=== PATIENT | female | born 1935 | race Caucasian/White ===

== ENCOUNTER 2016-10-30 07:33 | Outpatient (CLI) | payer MEDICARE, OTHER | END 2016-10-30 07:34 | disposition home or self-care (01) | DX: I10 Essential (primary) hypertension (principal); M35.3 Polymyalgia rheumatica ==

== ENCOUNTER 2017-02-23 09:48 | Outpatient (CLI) | payer MEDICARE, OTHER ==
--- NOTE | 2017-02-23 13:42 | DEXA Report ---
DEXA SCAN: 02/23/2017 CLINICAL INDICATION: Postmenopausal. TECHNIQUE: Dual energy x-ray absorptiometry (DXA) was performed on a [email or web address] system. Regions measured are the AP spine, femoral neck, and, if needed, forearm. COMPARISON: None. Using the data from the right hip and left forearm. In accordance with the International Society for Clinical Densitometry (ISCD) guidelines, data from previous exams may be reanalyzed using current recommendations and techniques. This is done to allow a more accurate basis for comparison with the current study. The data for the hip is as follows: REGION BMD (g/cm/cm) T-SCORE Z-SCORE Neck 0.940 -0.7 1.2 TOTAL 0.960 -0.4 1.4 NOTE: The femoral neck or total proximal femur, whichever is lowest, is used for classification. The data for the forearm is as follows: REGION BMD (g/cm/cm) T-SCORE Z-SCORE 1/3 0.841 -0.4 2.6 NOTE: The 33% radius of the nondominant forearm is used for classification. IMPRESSION: 1. THE WHO CLASSIFICATION BASED ON THE INTERNATIONAL REFERENCE STANDARD IS NORMAL. THE FRACTURE RISK IS NOT INCREASED. 2. LEFT FOREARM AND RIGHT HIP EVALUATION PERFORMED SECONDARY TO SPINAL FUSION AND LEFT HIP SURGERY. RECOMMENDATION: Patients with diagnosis of osteoporosis or osteopenia should have regular bone mineral density assessment. For those eligible for Medicare, routine testing is allowed once every 2 years. Testing frequency can be increased for patients who have rapidly progressing disease or for those who are receiving medical therapy to restore bone mass. COMMENT: World Health Organization (WHO) definitions for osteoporosis and osteopenia: NORMAL BMD: T-score at -1.0 or higher, fracture risk is low. OSTEOPENIA BMD: T-score between -1.0 and -2.5, fracture risk is increased. OSTEOPOROSIS BMD: T-score at -2.5 or lower, fracture risk high. National Osteoporosis Foundation recommends: 1. Obtain adequate dietary calcium (at least 1200 mg per day) and vitamin D (400 -800 international units per day). 2. Participate, as appropriate, in regular weightbearing and muscle- strengthening exercise. 3. Avoid tobacco use and reduce alcohol and caffeine intake. 4. For more detailed information see the website at www.NOF.org. MTDD
== END 2017-02-23 09:49 | disposition home or self-care (01) ==
LOC: DI 09:48
PROVIDERS: ATTEND Family Medicine
DX: Z78.0 Asymptomatic menopausal state (principal)
CPT/HCPCS: 77080

== ENCOUNTER 2017-04-20 15:37 | Outpatient (CLI) | payer MEDICARE, OTHER | END 2017-04-20 15:38 | disposition home or self-care (01) | LOC: LAB.WCP 15:37 | PROVIDERS: ATTEND Family Medicine | DX: M35.3 Polymyalgia rheumatica (principal) | CPT/HCPCS: 36415; 85651; 86140 ==

== ENCOUNTER 2017-05-29 16:01 | Outpatient (CLI) | payer MEDICARE, OTHER | END 2017-05-29 16:02 | disposition home or self-care (01) | LOC: LAB.WCP 16:01 | PROVIDERS: ATTEND Physician Assistant Medical | DX: M35.3 Polymyalgia rheumatica (principal) | CPT/HCPCS: 36415; 85651 ==

== ENCOUNTER 2017-06-19 12:35 | Outpatient (CLI) | payer MEDICARE, OTHER ==
--- NOTE | 2017-06-20 09:32 | Mammography Report ---
DIGITAL SCREENING MAMMOGRAM: 06/19/2017 COMPARISON: 06/05/2016, 06/03/2015, 09/26/2013, 09/25/2012, 03/06/2011, and 01/25/2010. TECHNIQUE: Bilateral digital CC and MLO projections. FINDINGS: There is extensive fatty replacement of the breast tissue. There is no dominant mass, arc hitectural distortion, skin thickening, suspicious microcalcifications, or significant interval humphreys e. IMPRESSION: NEGATIVE. BIRADS CATEGORY 1. SUGGEST RETURN TO ROUTINE ANNUAL SCREENING. STANDARD QUALIFYING STATEMENTS 1. This examination was reviewed with the aid of Computer-Aided Detection (CAD). 2. A negative or benign imaging report should not delay biopsy if clinically suspicious findings are present. Consider surgical consultation if warranted. More than 5% of cancers are not identified by i maging. 3. Dense breasts may obscure an underlying neoplasm. JOB #: [id number] EXT JOB #:[id number]
== END 2017-06-19 12:36 | disposition home or self-care (01) ==
LOC: DI 12:35
PROVIDERS: ATTEND Family Medicine
DX: Z12.31 Encounter for screening mammogram for malignant neoplasm of breast (principal)
CPT/HCPCS: 77067

== ENCOUNTER 2018-05-20 08:00 | Outpatient (CLI) | payer MEDICARE, OTHER ==
[2018-05-20 12:26] LABS: BASOPHILS # (AUTO) 0.1 10^3/uL (0.0-0.1); BASOPHILS % (AUTO) 0.8 %; EOSINOPHILS # (AUTO) 0.3 10^3/uL (0.0-0.7); EOSINOPHILS % (AUTO) 3.6 %; LYMPHOCYTES # (AUTO) 3.4 10^3/uL (1.5-3.5); LYMPHOCYTES % (AUTO) 42.8 %; MEAN CORPUSCULAR HGB CONC 33.7 g/dL (32.0-36.0); MEAN PLATELET VOLUME 8.6 fL (7.9-10.8); MONOCYTES # (AUTO) 0.7 10^3/uL (0.0-1.0); MONOCYTES % (AUTO) 8.9 %; NEUTROPHILS # (AUTO) 3.5 10^3/uL (1.5-6.6); NEUTROPHILS % (AUTO) 43.9 %; PLT - PLATELET COUNT 296 10^3/uL (130-450); RED BLOOD COUNT 4.66 10^6/uL (4.20-5.40); RED CELL DISTRIBUTION WIDTH 14.5 % (12.0-15.0)
[2018-05-20 13:01] LABS: ALBUMIN 3.9 g/dL (3.2-5.5); ALBUMIN/GLOBULIN RATIO 1.1 (1.0-2.2); ALKALINE PHOSPHATASE 58 IU/L (42-121); ALT ALANINE AMINOTRANSFERASE 19 IU/L (10-60); AST ASPARTATE AMINOTRANSFERASE 18 IU/L (10-42); BILIRUBIN,TOTAL 0.7 mg/dL (0.2-1.0); BUN - BLOOD UREA NITROGEN 23 mg/dL (6-20); CALCIUM 9.3 mg/dL (8.5-10.3); CARBON DIOXIDE - CO2 30 mmol/L (21-32); CHLORIDE 100 mmol/L (101-111); CHOL/HDL RATIO 3.2 (<4.4); CHOLESTEROL 227 mg/dL; CREATININE 0.9 mg/dL (0.4-1.0); GFR - MDRD 60 (>89); GLUCOSE 100 mg/dL (70-100); HDL CHOLESTEROL 72 mg/dL; LDL CHOLESTEROL,CALCULATED 124 mg/dL; LDL/HDL RATIO 1.7 (<4.4); SODIUM 140 mmol/L (135-145); TOTAL PROTEIN 7.3 g/dL (6.7-8.2); VLDL CHOLESTEROL 31 mg/dL
== END 2018-05-20 23:59 ==
LOC: LAB.WCP 08:00
PROVIDERS: ATTEND Family Medicine
DX: M35.3 Polymyalgia rheumatica (principal); R73.01 Impaired fasting glucose; E78.9 Disorder of lipoprotein metabolism, unspecified; I10 Essential (primary) hypertension
CPT/HCPCS: 36415; 80053; 80061; 83721; 84443; 85025; 85651

== ENCOUNTER 2018-07-10 11:18 | Outpatient (CLI) | payer MEDICARE, OTHER ==
--- NOTE | 2018-07-11 08:37 | Mammography Report ---
Reason: SCREENING MAMMO Procedure Date: 07/10/2018 Accession Number: [id number] / [id number] Procedure: MARTHA - Screening Mammo w/[facility] CPT Code: FULL RESULT: EXAM: Screening Mammo w/[facility] DATE: 07/10/2018 12:04 PM CLINICAL HISTORY: Screening encounter. Ongoing long-term hormone replacement therapy. TECHNIQUE: Bilateral CC and MLO views were obtained. COMPARISON: 06/19/2017 through 09/26/2013. FINDINGS: The breasts demonstrate diffuse fatty replacement bilaterally. A typically benign right breast upper outer quadrant intramammary lymph node is stable. No suspicious masses, clustered microcalcifications, or regions of architectural distortion are identified. IMPRESSION: Benign findings RECOMMENDATION: Routine annual screening unless otherwise clinically indicated. BIRADS CATEGORY 2: Benign findings STANDARD QUALIFYING STATEMENTS: 1. This examination was not reviewed with the aid of Computer-Aided Detection (CAD). 2. A negative or benign imaging report should not preclude biopsy if clinically suspicious findings are present. 3. Dense breasts may obscure an underlying neoplasm. 4. This examination was reviewed with the aid of 3D breast imaging (tomosynthesis).
== END 2018-07-10 11:19 | disposition home or self-care (01) ==
LOC: DI 11:18
DX: Z12.31 Encounter for screening mammogram for malignant neoplasm of breast (principal); Z79.890 Hormone replacement therapy
CPT/HCPCS: 77063; 77067

== ENCOUNTER 2018-10-30 08:00 | Outpatient (CLI) | payer MEDICARE, OTHER ==
[2018-10-30 19:05] LABS: BASOPHILS # (AUTO) 0.1 10^3/uL (0.0-0.1); BASOPHILS % (AUTO) 0.6 %; EOSINOPHILS # (AUTO) 0.1 10^3/uL (0.0-0.7); EOSINOPHILS % (AUTO) 0.7 %; HGB - HEMOGLOBIN 13.6 g/dL (12.0-16.0); LYMPHOCYTES # (AUTO) 2.6 10^3/uL (1.5-3.5); LYMPHOCYTES % (AUTO) 24.5 %; MEAN CORPUSCULAR HGB CONC 33.4 g/dL (32.0-36.0); MEAN CORPUSCULAR VOLUME 89.9 fL (81.0-99.0); MEAN PLATELET VOLUME 8.2 fL (7.9-10.8); MONOCYTES # (AUTO) 0.6 10^3/uL (0.0-1.0); MONOCYTES % (AUTO) 5.3 %; NEUTROPHILS # (AUTO) 7.3 10^3/uL (1.5-6.6); NEUTROPHILS % (AUTO) 68.9 %; PLT - PLATELET COUNT 354 10^3/uL (130-450); RED BLOOD COUNT 4.52 10^6/uL (4.20-5.40); WHITE BLOOD COUNT 10.6 x10^3/uL (4.8-10.8)
[2018-10-30 19:15] LABS: ALBUMIN 3.9 g/dL (3.2-5.5); ALBUMIN/GLOBULIN RATIO 1.1 (1.0-2.2); BILIRUBIN,TOTAL 0.5 mg/dL (0.2-1.0); CALCIUM 9.5 mg/dL (8.5-10.3); CREATININE 0.9 mg/dL (0.4-1.0); TOTAL PROTEIN 7.6 g/dL (6.7-8.2)
== END 2018-10-30 23:59 | disposition home or self-care (01) ==
LOC: LAB.WCP 08:00
PROVIDERS: ATTEND Family Medicine
DX: R19.7 Diarrhea, unspecified (principal); R05 Cough
CPT/HCPCS: 36415; 80053; 85025

== ENCOUNTER 2018-10-30 14:48 | Outpatient (CLI) | payer MEDICARE, OTHER ==
--- NOTE | 2018-10-30 15:27 | XRAY Report ---
Reason: COUGH Procedure Date: 10/30/2018 Accession Number: [id number] / [id number] Procedure: WCP - Chest 2 View X-Ray CPT Code: 07848 FULL RESULT: EXAM: CHEST RADIOGRAPHY EXAM DATE: 10/30/2018 02:56 PM. CLINICAL HISTORY: COUGH. COMPARISON: None. TECHNIQUE: 2 views. FINDINGS: Lungs/Pleura: No focal opacities evident. No pleural effusion. No pneumothorax. Normal volumes. Mediastinum: Heart and mediastinal contours are unremarkable. Other: There is multilevel thoracic spondylosis without evidence of compression fracture. There is partial visualization of upper lumbar fusion hardware. IMPRESSION: Normal 2-view chest radiography. RADIA
== END 2018-10-30 14:49 | disposition home or self-care (01) ==
LOC: DI.WCP 14:48
PROVIDERS: ATTEND Family Medicine
DX: R05 Cough (principal); R19.7 Diarrhea, unspecified
CPT/HCPCS: 36415; 71046; 80053; 85025

== ENCOUNTER 2018-11-04 08:00 | Outpatient (CLI) | payer MEDICARE, OTHER | END 2018-11-04 23:59 | disposition home or self-care (01) | LOC: LAB.R 08:00 | PROVIDERS: ATTEND Family Medicine | DX: R19.7 Diarrhea, unspecified (principal) | CPT/HCPCS: 81599; 83630; 87045; 87046; 87329; 87493; 89055 ==

== ENCOUNTER 2018-11-06 08:00 | Outpatient (CLI) | payer MEDICARE, OTHER | END 2018-11-06 23:59 | disposition home or self-care (01) | LOC: LAB.WCP 08:00 | PROVIDERS: ATTEND Family Medicine | DX: R19.7 Diarrhea, unspecified (principal) | CPT/HCPCS: 81599; 83630; 87045; 87046; 87329; 87493 ==

== ENCOUNTER 2019-06-25 08:00 | Outpatient (CLI) | payer MEDICARE, OTHER ==
[2019-06-25 12:56] LABS: CALCIUM 10.2 mg/dL (8.5-10.3)
== END 2019-06-25 23:59 | disposition home or self-care (01) ==
LOC: LAB.WCP 08:00
PROVIDERS: ATTEND Family Medicine
DX: M35.3 Polymyalgia rheumatica (principal)
CPT/HCPCS: 36415; 80048; 85651

== ENCOUNTER 2019-07-18 09:35 | Outpatient (CLI) | payer MEDICARE, OTHER ==
--- NOTE | 2019-07-18 11:12 | Mammography Report ---
Reason: SCREENING MAMMO Procedure Date: 07/18/2019 Accession Number: [id number] / [id number] Procedure: MARTHA - Screening Mammo w/[facility] CPT Code: Final Report FULL RESULT: EXAM: Screening Mammo w/[facility] DATE: 07/18/2019 10:03 AM CLINICAL HISTORY: Screening encounter. TECHNIQUE: (B) - Bilateral CC and MLO views were obtained. COMPARISON: 07/10/2018 through 01/25/2010. PARENCHYMAL PATTERN: (F) - The breast(s) demonstrate(s) diffuse fatty replacement. FINDINGS: There are no suspicious masses, calcifications, or areas of distortion. IMPRESSION: Negative examination. BI-RADS category 1. RECOMMENDATION: (ANNUAL) - Recommend routine annual screening mammography. BI-RADS CATEGORY: (1) - Negative. STANDARD QUALIFYING STATEMENTS: 1. This examination was not reviewed with the aid of Computer-Aided Detection (CAD). 2. A negative or benign imaging report should not preclude biopsy if clinically suspicious findings are present. 3. Dense breasts may obscure an underlying neoplasm. 4. This examination was reviewed with the aid of 3D breast imaging (tomosynthesis).
== END 2019-07-18 09:36 | disposition home or self-care (01) ==
LOC: DI 09:35
DX: Z12.31 Encounter for screening mammogram for malignant neoplasm of breast (principal)
CPT/HCPCS: 77063; 77067

== ENCOUNTER 2020-08-17 08:00 | Outpatient (CLI) | payer MEDICARE, OTHER ==
[2020-08-17 13:05] LABS: BASOPHILS # (AUTO) 0.1 10^3/uL (0.0-0.1); BASOPHILS % (AUTO) 0.9 %; EOSINOPHILS # (AUTO) 0.3 10^3/uL (0.0-0.7); EOSINOPHILS % (AUTO) 3.2 %; HGB - HEMOGLOBIN 14.1 g/dL (12.0-16.0); LYMPHOCYTES # (AUTO) 4.8 10^3/uL (1.5-3.5); LYMPHOCYTES % (AUTO) 45.8 %; MEAN CORPUSCULAR HEMOGLOBIN 29.1 pg (27.0-31.0); MEAN CORPUSCULAR HGB CONC 31.5 g/dL (32.0-36.0); MEAN CORPUSCULAR VOLUME 92.2 fL (81.0-99.0); MONOCYTES % (AUTO) 9.1 %; NEUTROPHILS # (AUTO) 4.3 10^3/uL (1.5-6.6); NEUTROPHILS % (AUTO) 40.7 %; PLT - PLATELET COUNT 371 10^3/uL (130-450); RED BLOOD COUNT 4.85 10^6/uL (4.20-5.40); RED CELL DISTRIBUTION WIDTH 14.6 % (12.0-15.0); WHITE BLOOD COUNT 10.4 x10^3/uL (4.8-10.8)
[2020-08-17 14:38] LABS: ALBUMIN 3.7 g/dL (3.2-5.5); ALBUMIN/GLOBULIN RATIO 1.2 (1.0-2.2); ALKALINE PHOSPHATASE 63 IU/L (42-121); ALT ALANINE AMINOTRANSFERASE 17 IU/L (10-60); AST ASPARTATE AMINOTRANSFERASE 17 IU/L (10-42); BILIRUBIN,TOTAL 0.4 mg/dL (0.2-1.0); BUN - BLOOD UREA NITROGEN 25 mg/dL (6-20); CALCIUM 9.9 mg/dL (8.5-10.3); CARBON DIOXIDE - CO2 29 mmol/L (21-32); CHLORIDE 99 mmol/L (101-111); CHOL/HDL RATIO 3.5 (<4.4); CHOLESTEROL 223 mg/dL; CREATININE 0.9 mg/dL (0.4-1.0); GLUCOSE 101 mg/dL (70-100); HDL CHOLESTEROL 63 mg/dL; LDL CHOLESTEROL,CALCULATED 138 mg/dL; LDL/HDL RATIO 2.2 (<4.4); TOTAL PROTEIN 6.8 g/dL (6.7-8.2); VLDL CHOLESTEROL 22 mg/dL
== END 2020-08-17 23:59 | disposition home or self-care (01) ==
LOC: LAB.WCP 08:00
PROVIDERS: ATTEND Family Medicine
DX: M35.3 Polymyalgia rheumatica (principal); R73.01 Impaired fasting glucose; E78.5 Hyperlipidemia, unspecified; I10 Essential (primary) hypertension
CPT/HCPCS: 36415; 80053; 80061; 83721; 84443; 85025

== ENCOUNTER 2020-09-02 10:15 | Outpatient (CLI) | payer MEDICARE, OTHER ==
--- NOTE | 2020-09-03 10:08 | XRAY Report ---
PROCEDURE: Chest 2 View X-Ray INDICATIONS: WHEEZING TECHNIQUE: 2 view(s) of the chest. COMPARISON: None. FINDINGS: Surgical changes and devices: None. Lungs and pleura: No pleural effusions or pneumothorax. Lungs are clear. Mediastinum: Mediastinal contours are normal. Heart size is normal. Bones and chest wall: No suspicious bony abnormalities. Soft tissues appear unremarkable. IMPRESSION: Normal for age, source of current symptoms is not seen. Reviewed by: Eagle Clark MD on 09/03/2020 10:06 AM [facility] Approved by: Eagle Clark MD on 09/03/2020 10:06 AM [facility] Station ID: [id number]
== END 2020-09-02 10:16 | disposition home or self-care (01) ==
LOC: DI.N 10:15
PROVIDERS: ATTEND Physician Assistant Medical
DX: R06.2 Wheezing (principal)

== ENCOUNTER 2020-09-27 12:55 | Outpatient (CLI) | payer MEDICARE, OTHER ==
--- NOTE | 2020-09-28 12:51 | Mammography Report ---
BILATERAL DIGITAL SCREENING MAMMOGRAM 3D/2D: 09/27/2020 CLINICAL: Routine screening. Comparison is made to exams dated: 07/18/2019 mammogram, 07/10/2018 mammogram, 06/19/2017 mammogram, mammogram, 06/03/2015 mammogram, and 09/26/2013 mammogram - [facility]. Th e tissue of both breasts is predominantly fatty. No significant masses, calcifications, or other findings are seen in either breast. There has been no significant interval change. IMPRESSION: NEGATIVE There is no mammographic evidence of malignancy. A 1 year screening mammogram is recommended. This exam was interpreted at Station ID: [id number]. NOTE: For mammograms, a report in lay terms will be sent to the patient. Approximately 15% of breast malignancies will not be visualized mammographically. In the management of a palpable breast mass, a negative mammogram must not discourage biopsy of a clinically suspicious lesion. Electronically Signed By: Vikash Harris M.D. aty/bennettrad:09/27/2020 16:28:38 ACR BI-RADS Category 1: Negative 3341F PARENCHYMAL PATTERN: (F) - The breast(s) demonstrate(s) diffuse fatty replacement. BI-RADS CATEGORY: (1) - 1 RECOMMENDATION: (ANNUAL) - Recommend routine annual screening mammography. [id number] 1 year screening LATERALITY: (B)
== END 2020-09-27 12:56 | disposition home or self-care (01) ==
LOC: DI.N 12:55
DX: Z12.31 Encounter for screening mammogram for malignant neoplasm of breast (principal)

== ENCOUNTER 2021-01-26 07:39 | Outpatient (CLI) | payer MEDICARE, OTHER | END 2021-01-26 07:40 | disposition home or self-care (01) | LOC: DI 07:39 | PROVIDERS: ATTEND Physician Assistant Medical | DX: R07.89 Other chest pain (principal); I11.9 Hypertensive heart disease without heart failure | CPT/HCPCS: 93306 ==

== ENCOUNTER 2021-03-29 13:27 | Outpatient (CLI) | payer MEDICARE, OTHER | END 2021-03-29 13:28 | disposition home or self-care (01) | LOC: RT 13:27 | PROVIDERS: ATTEND Physician Assistant Medical | DX: J45.909 Unspecified asthma, uncomplicated (principal) | CPT/HCPCS: 94060; 94729 ==

== ENCOUNTER 2021-07-21 12:47 | Inpatient (IN) | payer MEDICARE, OTHER ==
--- NOTE | 2021-07-21 13:29 | ED Physician Documentation ---
PD HPI URI - Stated complaint Stated Complaint: DEEP COUGH, FATIGUE, LOSS OF TASTE/SMELL - Chief complaint Chief Complaint: Resp - History obtained from History obtained from: Patient - History of Present Illness Timing - onset: How many days ago (10) Timing duration: Days (10) Timing details: Gradual onset, Still present Associated symptoms: Fever, Dry cough, Dyspnea (hoarse voice and wheezing/dyspnea.). No: Hemoptysis, Chest pain Contributing factors: Sick contact ( she was with several family members on [place] Eve. 2 of the children had congestion and mild cough. Subsequently several family members including the patient became sick a few days later with fever cough hoarseness. Others are feeling better. Patient with persistent dyspnea, cough, malaise.), COPD / asthma (reportedly mild lung disease with Rx of Albuterol MDI prn.) Improves by: Rest Worsened by: Activity, Other (coughing). No: Position Similar symptoms before: Has not had sx before Recently seen: Not recently seen Review of Systems Constitutional: reports: Fever, Chills, Fatigue. denies: Weight Loss Nose: reports: Rhinorrhea / runny nose, Congestion Throat: denies: Sore throat Cardiac: denies: Chest pain / pressure, Palpitations, Pedal edema, Calf pain Respiratory: reports: Dyspnea, Cough, Wheezing GI: reports: Nausea. denies: Abdominal Pain, Vomiting, Diarrhea : denies: Dysuria Skin: denies: Rash Musculoskeletal: denies: Extremity swelling Neurologic: reports: Generalized weakness. 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 HEENT: Cataracts - Present Medications Home Medications: Ambulatory Orders Medication Instructions Recorded Confirmed Latanoprost 0.005% Ophth Drops 1 drop EACHEYE QPM 07/21/15 07/21/21 [Xalatan Ophth Drops] estradioL [Estradiol (Twice 0.0375 mg TOP Q7D 07/21/15 07/21/21 Weekly)] hydroCHLOROthiazide 25 mg PO DAILY 07/21/15 07/21/21 [Hydrochlorothiazide] Losartan Potassium [Cozaar] 100 mg PO DAILY 07/21/21 07/21/21 Methotrexate [Methotrexate Sodium] 20 mg PO Q7D 07/21/21 07/21/21 Pantoprazole [Protonix] 40 mg PO QDAC 07/21/21 07/21/21 Timolol 0.5% Ophth Drops [Timoptic 1 drops EACHEYE BID 07/21/21 07/21/21 0.5% Ophth Drops] predniSONE [Deltasone] 5 mg PO 0800 07/21/21 07/21/21 - Allergies Allergies/Adverse Reactions: Allergies Allergy/AdvReac Type Severity Reaction Status Date / Time No Known Drug Allergies Allergy Verified 07/21/21 12:50 PD ED PE NORMAL - Vitals Vital signs reviewed: Yes (initial sats 92% RA, but decrased to 88% here at rest.) - General General: Alert and oriented X 3, Well developed/nourished - HEENT HEENT: Ears normal, Moist mucous membranes, Pharynx benign - Neck Neck: Supple, no meningeal sign, No adenopathy - Cardiac Cardiac: RRR, No murmur - Respiratory Respiratory: No: Clear bilaterally (no coarse sounds. Has expiratory wheezing central and posterior. Hoarse voice. ) - Abdomen Abdomen: Soft, Non tender - Back Back: No CVA TTP - Derm Derm: Normal color, Warm and dry - Extremities Extremities: Normal ROM s pain, No edema, No calf tenderness / cord - Neuro Neuro: Alert and oriented X 3, No motor deficit, Normal speech Eye Opening: Spontaneous Motor: Obeys Commands Verbal: Oriented GCS Score: 15 - Psych Psych: Normal mood, Normal affect Results - Vitals Vitals: Vital Signs - 24 hr 07/21/21 07/21/21 07/21/21 12:51 14:20 14:37 Temperature 37.0 C Heart Rate 72 78 73 Respiratory 16 20 20 Rate Blood Pressure 156/61 H 145/74 H O2 Saturation 92 88 L 07/21/21 07/21/21 15:25 16:03 Temperature Heart Rate 79 69 Respiratory 20 16 Rate Blood Pressure 135/64 H O2 Saturation 94 Oxygen O2 Source Nasal cannula Oxygen Flow Rate 2 - Labs Labs: Laboratory Tests 07/21/21 07/21/21 07/21/21 14:55 15:00 15:00 WBC 8.4 RBC 4.32 Hgb 13.2 Hct 40.1 MCV 92.8 MCH 30.6 MCHC 32.9 RDW 15.1 H Plt Count 263 MPV 8.8 Neut # (Auto) 6.1 Lymph # (Auto) 1.8 Garrard # (Auto) 0.4 Eos # (Auto) 0.1 Baso # (Auto) 0.0 Absolute Nucleated RBC 0.00 Nucleated RBC % 0.0 Sodium 137 Potassium 3.3 L Chloride 99 L Carbon Dioxide 28 Anion Gap 10.0 BUN 11 Creatinine 0.7 Estimated GFR (MDRD) 79 L Glucose 157 H Calcium 8.5 Total Bilirubin 0.5 AST 34 ALT 28 Alkaline Phosphatase 61 B-Natriuretic Peptide Total Protein 7.1 Albumin 3.1 L Globulin 4.0 Albumin/Globulin Ratio 0.8 L Lipase 28 Nasal Adenovirus (PCR) NOT DETECTED Nasal B. parapertussis DNA (PCR) NOT DETECTED Nasal Coronavir 229E PCR NOT DETECTED Nasal Coronavir HKU1 PCR NOT DETECTED Nasal Coronavir NL63 PCR NOT DETECTED Nasal Coronavir OC43 PCR NOT DETECTED Nasal Enterovir/Rhinovir PCR NOT DETECTED Nasal Influenza B PCR NOT DETECTED Nasal Influenza A PCR NOT DETECTED Nasal Parainfluen 1 PCR NOT DETECTED Nasal Parainfluen 2 PCR NOT DETECTED Nasal Parainfluen 3 PCR NOT DETECTED Nasal Parainfluen 4 PCR NOT DETECTED Nasal RSV (PCR) NOT DETECTED Nasal B.pertussis DNA PCR NOT DETECTED Nasal C.pneumoniae (PCR) NOT DETECTED Geoffrey Human Metapneumo PCR NOT DETECTED Nasal M.pneumoniae (PCR) NOT DETECTED Nasal SARS-CoV-2 (PCR) DETECTED A 07/21/21 15:00 WBC RBC Hgb Hct MCV MCH MCHC RDW Plt Count MPV Neut # (Auto) Lymph # (Auto) Garrard # (Auto) Eos # (Auto) Baso # (Auto) Absolute Nucleated RBC Nucleated RBC % Sodium Potassium Chloride Carbon Dioxide Anion Gap BUN Creatinine Estimated GFR (MDRD) Glucose Calcium Total Bilirubin AST ALT Alkaline Phosphatase B-Natriuretic Peptide 256 H Total Protein Albumin Globulin Albumin/Globulin Ratio Lipase Nasal Adenovirus (PCR) Nasal B. parapertussis DNA (PCR) Nasal Coronavir 229E PCR Nasal Coronavir HKU1 PCR Nasal Coronavir NL63 PCR Nasal Coronavir OC43 PCR Nasal Enterovir/Rhinovir PCR Nasal Influenza B PCR Nasal Influenza A PCR Nasal Parainfluen 1 PCR Nasal Parainfluen 2 PCR Nasal Parainfluen 3 PCR Nasal Parainfluen 4 PCR Nasal RSV (PCR) Nasal B.pertussis DNA PCR Nasal C.pneumoniae (PCR) Geoffrey Human Metapneumo PCR Nasal M.pneumoniae (PCR) Nasal SARS-CoV-2 (PCR) - Rads (name of study) chest xray Radiology: Prelim report reviewed (no infiltrates), See rad report PD MEDICAL DECISION MAKING - ED course Complexity details: considered differential (initial aman 92% RA but did dip to 88% couple of times in ER on RA. Sats good 93-96% on NC. CXR does not show pneumonia. Consider COVID vs RSV with exac of underlying asthma/COPD. ), d/w patient Departure - Departure Disposition: ED Place in Observation Clinical Impression: Acute lower respiratory infection, Hypoxia, Exertional dyspnea, COVID-19 Condition: Stable Record reviewed to determine appropriate education?: Yes Discharge Date/Time: 07/21/21 17:29
[2021-07-21] MEDS ORDERED: DEXAMETHASONE 10 MG/ML VIAL PO STA (14:04)
[2021-07-21] MEDS ORDERED: BENZONATATE 100 MG CAPSULE PO STA (14:04)
[2021-07-21] MEDS ORDERED: CHERRY SYRUP 10 ML UDC PO ONE (14:04)
[2021-07-21] MEDS ORDERED: ALBUTEROL 1 PUFF INH STA (14:04)
--- NOTE | 2021-07-21 14:41 | XRAY Report ---
PROCEDURE: Chest 1 View X-Ray INDICATIONS: cough and wheezing TECHNIQUE: One view of the chest was acquired. COMPARISON: Chest x-ray 09/02/2020 FINDINGS: Surgical changes and devices: None. Lungs and pleura: No pleural effusions or pneumothorax. Lungs are clear. Mediastinum: Mediastinal contours appear normal. Heart size is normal. Bones and chest wall: No suspicious bony lesions. Overlying soft tissues appear unremarkable. IMPRESSION: No acute pulmonary process. Reviewed by: Michelle Fry MD on 07/21/2021 2:40 PM PST Approved by: Michelle Fry MD on 07/21/2021 2:40 PM [facility] Station ID: [id number]
[2021-07-21] MEDS ORDERED: IPRATROPIUM/ALBUTEROL 3 ML NEB INH STA (15:03)
[2021-07-21 15:09] LABS: BASOPHILS % (AUTO) 0.2 %; EOSINOPHILS # (AUTO) 0.1 10^3/uL (0.0-0.7); EOSINOPHILS % (AUTO) 1.2 %; HCT - HEMATOCRIT 40.1 % (37.0-47.0); HGB - HEMOGLOBIN 13.2 g/dL (12.0-16.0); LYMPHOCYTES # (AUTO) 1.8 10^3/uL (1.5-3.5); LYMPHOCYTES % (AUTO) 21.2 %; MEAN CORPUSCULAR HEMOGLOBIN 30.6 pg (27.0-31.0); MEAN CORPUSCULAR HGB CONC 32.9 g/dL (32.0-36.0); MEAN CORPUSCULAR VOLUME 92.8 fL (81.0-99.0); MEAN PLATELET VOLUME 8.8 fL (7.9-10.8); MONOCYTES # (AUTO) 0.4 10^3/uL (0.0-1.0); MONOCYTES % (AUTO) 4.8 %; NEUTROPHILS # (AUTO) 6.1 10^3/uL (1.5-6.6); PLT - PLATELET COUNT 263 10^3/uL (130-450); RED BLOOD COUNT 4.32 10^6/uL (4.20-5.40); RED CELL DISTRIBUTION WIDTH 15.1 % (12.0-15.0); WHITE BLOOD COUNT 8.4 x10^3/uL (4.8-10.8)
[2021-07-21 15:22] LABS: ALBUMIN 3.1 g/dL (3.2-5.5); ALBUMIN/GLOBULIN RATIO 0.8 (1.0-2.2); BILIRUBIN,TOTAL 0.5 mg/dL (0.2-1.0); CALCIUM 8.5 mg/dL (8.5-10.3); CREATININE 0.7 mg/dL (0.4-1.0); POTASSIUM 3.3 mmol/L (3.5-5.0); TOTAL PROTEIN 7.1 g/dL (6.7-8.2)
[2021-07-21 16:01] LABS: CORONAVIRUS 229E-RESP PCR NOT DETECTED; CORONAVIRUS HKU1-RESP PCR NOT DETECTED; CORONAVIRUS NL63-RESP PCR NOT DETECTED; CORONAVIRUS OC43-RESP PCR NOT DETECTED
[2021-07-21 16:03] LABS: SARS-CoV-2 -RESP PCR PANEL DETECTED
[2021-07-21 16:14] LABS: B. PARAPERTUSSIS- RESP PCR PAN NOT DETECTED; B. PERTUSSIS- RESP PCR PANEL NOT DETECTED; C. PNEUMONIAE- RESP PCR PANEL NOT DETECTED; HUMAN METAPNEUMOVIRUS NOT DETECTED; INFLUENZA A- RESP PCR PANEL NOT DETECTED; INFLUENZA B - RESP PCR PANEL NOT DETECTED; M. PNEUMONIAE- RESP PCR PANEL NOT DETECTED; PARAINFLUENZA VIRUS 1 NOT DETECTED; PARAINFLUENZA VIRUS 2 NOT DETECTED; PARAINFLUENZA VIRUS 3 NOT DETECTED; PARAINFLUENZA VIRUS 4 NOT DETECTED; RHINOVIRUS/ENTEROVIRUS NOT DETECTED; RSV- RESP PCR PANEL NOT DETECTED
[2021-07-21] MEDS ORDERED: oxyCODONE 5 MG TABLET PO PRN (16:27)
[2021-07-21] MEDS ORDERED: POTASSIUM CHLORIDE 20 MEQ TABLET PO STA (16:37)
[2021-07-21] MEDS ORDERED: ALBUTEROL 1 PUFF INH PRN (16:45)
--- NOTE | 2021-07-21 16:45 | HISTORY & PHYSICAL EXAMINATION ---
Chief Complaint - Chief Complaint Chief Complaint: cough, shortness of breath History of Present Illness - Admitted From Admitted From:: ER - History Obtained [facility] History obtained from: pt Exam Limitations: no - History of Present Illness HPI Comment/Other: This is a 86-years old female with a past medical history significant for hypertension, GERD, incontinence, osteoarthritis, asthma, who present ER complain of persisting cough, fatigue, loss of taste, shortness of breath. Pt re port after her family had [place]., her two children had cough, upper respiratory symptoms first, then other family member including pt herself became sick. She had cough, wheezing, fatigue, malaise. She denies fever at the home. she became loss of appetite, very weak. She denies nausea or vomiting. she report she had once of diarrhea on today. She was vaccinated twice but not have booster yet. Covid 19 test in ER show positive. CXR reveals Unremarkable for acute process. In ER, patient is afebrile, patient had 88% O2 sat on room air. Given above pt's medical conditions, medical team was consulted for admission. 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 Her mother at age 85 from congestive heart failure. Social History Notes: Patient report she quit cigarette smoking 40 years ago. Denies alcohol or drug problem Meds/Allgy - Home Medications Home Medications: Ambulatory Orders Medication Instructions Recorded Confirmed Latanoprost 0.005% Ophth Drops 1 drop EACHEYE QPM 07/21/15 07/21/21 [Xalatan Ophth Drops] estradioL [Estradiol (Twice 0.0375 mg TOP Q7D 01/06/16 01/06/22 Weekly)] hydroCHLOROthiazide 25 mg PO DAILY 07/21/15 07/21/21 [Hydrochlorothiazide] Losartan Potassium [Cozaar] 100 mg PO DAILY 07/21/21 07/21/21 Methotrexate [Methotrexate Sodium] 20 mg PO Q7D 07/21/21 07/21/21 Pantoprazole [Protonix] 40 mg PO QDAC 07/21/21 07/21/21 Timolol 0.5% Ophth Drops [Timoptic 1 drops EACHEYE BID 07/21/21 07/21/21 0.5% Ophth Drops] predniSONE [Deltasone] 5 mg PO 0800 07/21/21 07/21/21 - Allergies Allergies/Adverse Reactions: Allergies Allergy/AdvReac Type Severity Reaction Status Date / Time No Known Drug Allergies Allergy Verified 07/21/21 12:50 Review of Systems - Constitutional Constitutional: reports: Fatigue, Fever, Malaise, Weakness, Poor appetite - Eyes Eyes: denies: Pain - Ears, Nose & Throat Ears, Nose & Throat: denies: Ear pain - Cardiovascular Cariovascular: reports: Exertional dyspnea, Decr. exercise tolerance. denies: Palpitations, Chest pain - Respiratory Respiratory: reports: Cough, Sputum production, Wheezing, SOB with exertion - Gastrointestinal Gastrointestinal: denies: Abdominal pain, Diarrhea, Nausea, Vomiting - Genitourinary Genitourinary: denies: Dysuria - Musculoskeletal Musculoskeletal: reports: Muscle aches - Integumentary Integumentary: denies: Rash - Neurological Neurological: reports: General weakness. denies: Focal weakness, Dizziness, Numbness, Abnormal gait, Seizures, Incoordination, Slurred speech Exam - Vital Signs Vital Signs: Vital Signs x48h Temp Pulse Resp BP Pulse Ox 07/21/21 16:03 69 16 135/64 H 94 07/21/21 15:25 79 20 07/21/21 14:37 73 20 145/74 H 88 L 07/21/21 14:20 78 20 07/21/21 12:51 37.0 C 72 16 156/61 H 92 - Physical Exam General Appearance: positive: No acute distress, Alert. negative: Lethargic Eyes Bilateral: positive: Normal inspection, No lid inflammation ENT: positive: ENT inspection nml, No signs of dehydration. negative: Purulent nasal drainage Neck: positive: Nml inspection, Trachea midline. negative: Tracheal deviation Respiratory: positive: Chest non-tender, No respiratory distress, Rales. negative: Wheezes Cardiovascular: positive: Regular rate & rhythm. negative: Tachycardia, Bradycardia, Systolic murmur Peripheral Pulses: positive: 2+ Abdomen: positive: Non-tender, Nml bowel sounds, No distention. negative: Tenderness Back: positive: Nml inspection Skin: positive: Color nml, Warm, Dry. negative: Cyanosis Extremities: positive: Non-tender, Full ROM, Nml appearance. negative: Pedal edema Neurologic/Psychiatric: positive: Oriented x3, Motor nml, Sensation nml. negative: Weakness, Sensory loss, Facial droop, Slurred/abnml speech, Depressed mood/affect Conclusion/Plan - Problem List (1) Acute respiratory failure with hypoxia Conclusion/Plan: Patient had 88% oxygen saturation on room air. Patient also report cough, wheezy, [place], fatigue, and loss of appetite and smell, no fever at home. Covid 19 test is positive. pt report she was vaccinated which may help her symptoms and healing process. we will start with Remdesivir, Decatron, and Lovenox supplement O2 as needed. (2) Pneumonia due to COVID-19 virus Conclusion/Plan: pt present typical Covid 19 pneumonia symptoms, Covid 19 is positive at ER, piedad mendoza pt's CXR is unremarkable for acute process now. pt report she was vaccinated which will help her deal with the virus. (3) HTN (hypertension) Conclusion/Plan: pt had hx of HTN, will resume home meds after confirmed (4) Hypokalemia Conclusion/Plan: potassium is 3.3, will replaced with potassium, and will lab monitor - Lab Results Fish Bones: 07/21/21 15:00 07/21/21 15:00 Core Measures - Anticipated LOS I expect patient to be DC'd or transferred within 96 hours.: Yes - DVT/VTE - Prophylaxis VTE/DVT Device ordered at admit?: Yes VTE/DVT Prophylaxis med ordered at admit?: Yes
[2021-07-21] MEDS ORDERED: SODIUM CHLORIDE 0.9% 1,000 ML IV SCH (17:00)
--- NOTE | 2021-07-21 17:41 | PHARMACY PROGRESS NOTE ---
- Best Possible Medication History Admit Date and Time: 07/21/21 1626 Processed by: Pharmacy Medication History completed: Yes Secondary Source(s): Physician records, Pharmacy records, Insurance records As the person ultimately responsible for medication therapy, providers are able to order a medication from an existing home medication list in [facility] via the "Reconcile Routine" prior to Confirmation of that medication by customer support associate. Such practice is discouraged except when the physician, in their clinical judgment, deems that a medical need exists for a medication without regard to previous use.
[2021-07-21] MEDS: SODIUM CHLORIDE FLUSH 0.9% 10 ML SYRINGE IVP SCH (17:58)
[2021-07-21] MEDS ORDERED: REMDESIVIR 100MG VIAL 200 MG in SODIUM CHLORIDE 0.9% 250 ML IV ONE (18:30)
[2021-07-21] MEDS: BENZONATATE 100 MG CAPSULE PO PRN (19:28)
[2021-07-21] MEDS: LATANOPROST 0.005% OPHTH DROPS EACHEYE SCH (21:40)
[2021-07-21] MEDS: TIMOLOL 0.5% OPHTH DROPS EACHEYE SCH (21:40)
[2021-07-22] MEDS: SODIUM CHLORIDE FLUSH 0.9% 10 ML SYRINGE IVP SCH ×3 (00:58→21:26)
[2021-07-22 07:59] LABS: HCT - HEMATOCRIT 39.2 % (37.0-47.0); HGB - HEMOGLOBIN 12.9 g/dL (12.0-16.0); LYMPHOCYTES # (AUTO) 1.4 10^3/uL (1.5-3.5); LYMPHOCYTES % (AUTO) 17.7 %; MEAN CORPUSCULAR HEMOGLOBIN 30.6 pg (27.0-31.0); MEAN CORPUSCULAR HGB CONC 32.9 g/dL (32.0-36.0); MEAN CORPUSCULAR VOLUME 93.1 fL (81.0-99.0); MEAN PLATELET VOLUME 9.3 fL (7.9-10.8); MONOCYTES # (AUTO) 0.5 10^3/uL (0.0-1.0); MONOCYTES % (AUTO) 6.1 %; NEUTROPHILS # (AUTO) 6.1 10^3/uL (1.5-6.6); NEUTROPHILS % (AUTO) 75.5 %; PLT - PLATELET COUNT 324 10^3/uL (130-450); RED BLOOD COUNT 4.21 10^6/uL (4.20-5.40); RED CELL DISTRIBUTION WIDTH 15.1 % (12.0-15.0)
[2021-07-22 08:05] LABS: SLIDE REVIEW? Indicated
[2021-07-22 08:09] LABS: CALCIUM 8.5 mg/dL (8.5-10.3); CREATININE 0.7 mg/dL (0.4-1.0); CRP - C-REACTIVE PROTEIN 21.2 mg/dL (0-1.0)
[2021-07-22] MEDS: BENZOCAINE/MENTHOL LOZENGE MM PRN ×2 (08:24→15:17)
[2021-07-22] MEDS: PANTOPRAZOLE 40 MG TABLET PO SCH (08:24)
[2021-07-22] MEDS: BENZONATATE 100 MG CAPSULE PO PRN ×2 (08:24→15:17)
[2021-07-22 08:49] LABS: PLATELET ESTIMATE, MANUAL NORMAL (130-450,000) (NORMAL); PLATELET MORPHOLOGY NORMAL APPEARANCE (NORMAL); RBC MORPHOLOGY (MULTIPLE) NORMAL APPEARANCE (NORMAL); WBC MORPHOLOGY (MULTIPLE) NORMAL APPEARANCE (NORMAL)
[2021-07-22] MEDS: FOLIC ACID 1 MG TABLET PO SCH (10:57)
[2021-07-22] MEDS: guaiFENesin 600 MG TABLET PO SCH ×2 (10:57→21:18)
[2021-07-22] MEDS: ENOXAPARIN 40 MG/0.4 ML SYRINGE SUBQ SCH (10:57)
[2021-07-22] MEDS: TIMOLOL 0.5% OPHTH DROPS EACHEYE SCH ×2 (10:59→21:18)
[2021-07-22] MEDS: DEXAMETHASONE 10 MG/ML VIAL IVP SCH (11:06)
[2021-07-22] MEDS: SODIUM CHLORIDE FLUSH 0.9% 10 ML SYRINGE IVP PRN ×2 (11:06→13:47)
--- NOTE | 2021-07-22 12:36 | PROVIDER PROGRESS NOTE ---
Assessment/Plan - Problem List (1) Acute respiratory failure with hypoxia Assessment/Plan: 07/22 stable, pt has 94% O2 sat on 2 liter of O2, she does not show acute respiratory distress on rest with NC O2. continue Remdesivir, Decatron, and Lovenox supplement O2 as needed. continue vital monitor Patient had 88% oxygen saturation on room air. Patient also report cough, wheezy, [place], fatigue, and loss of appetite and smell, no fever at home. Covid 19 test is positive. pt report she was vaccinated which may help her symptoms and healing process. we will start with Remdesivir, Decatron, and Lovenox supplement O2 as needed. (2) Pneumonia due to COVID-19 virus Conclusion/Plan: pt present typical Covid 19 pneumonia symptoms, Covid 19 is positive at ER, alth ough pt's CXR is unremarkable for acute process now. pt report she was vaccinated which will help her deal with the virus. (3) HTN (hypertension) Conclusion/Plan: 07/22 resume home meds, continue vital monitor pt had hx of HTN, will resume home meds after confirmed (4) Hypokalemia Conclusion/Plan: potassium is 3.3, will replaced with potassium, and will lab monitor - Current Meds Current Meds: Current Medications Generic Name Dose Route Start Last Admin Trade Name Freq PRN Reason Stop Dose Admin Benzonatate 100 mg 07/21/21 18:54 07/22/21 08:24 Benzonatate 100 Mg Capsule PO 100 mg TID PRN Administration Cough Dexamethasone 6 mg 07/22/21 09:00 07/22/21 11:06 Dexamethasone 10 Mg/Ml Vial IVP 6 mg DAILY CATHI Administration Enoxaparin Sodium 40 mg 07/22/21 09:00 07/22/21 10:57 Enoxaparin 40 Mg/0.4 Ml Syringe SUBQ 40 mg DAILY CATHI Administration Folic Acid 1 mg 07/22/21 10:00 07/22/21 10:57 Folic Acid 1 Mg Tablet PO 1 mg DAILY CATHI Administration Guaifenesin 600 mg 07/22/21 09:00 07/22/21 10:57 Guaifenesin 600 Mg Tablet PO 600 mg BID CATHI Administration Latanoprost 1 drops 07/21/21 21:00 07/21/21 21:40 Latanoprost 0.005% Ophth Drops EACHEYE 1 drops QPM CATHI Administration Pantoprazole Sodium 40 mg 07/22/21 07:00 07/22/21 08:24 Pantoprazole 40 Mg Tablet PO 40 mg QDAC CATHI Administration Sodium Chloride 10 ml 07/21/21 16:27 07/22/21 11:06 Sodium Chloride Flush 0.9% 10 Ml Syringe IVP 10 ml PRN PRN Administration NEEDED PER PROVIDER ORDERS Sodium Chloride 10 ml 07/21/21 17:00 07/22/21 08:30 Sodium Chloride Flush 0.9% 10 Ml Syringe IVP 10 ml 0100,0900,1700 CATHI Administration Throat Lozenges 1 lozenge 07/22/21 05:52 07/22/21 08:24 Benzocaine/Menthol Lozenge MM 1 lozenge Q2HR PRN Administration Throat pain Timolol Maleate 1 drops 07/21/21 21:00 07/22/21 10:59 Timolol 0.5% Ophth Drops EACHEYE 1 drops BID CATHI Administration - Lab Result Fish Bone Diagrams: 07/22/21 07:20 07/22/21 07:20 - Additional Planning My Orders: My Active Orders 07/21/21 16:45 Mdi: Albuterol 2 puffs INH Q4H PRN 07/21/21 16:46 Resp Teach Nebulizer/MDI [RC] .ONCE 07/21/21 18:54 Benzonatate [Tessalon] 100 mg PO TID PRN 07/21/21 21:00 Latanoprost 0.005% Ophth Drops [Xalatan Ophth Drops] 1 drops EACHEYE QPM Timolol 0.5% Ophth Drops [Timoptic 0.5% Ophth Drops] 1 drops EACHEYE BID 07/22/21 07:00 Pantoprazole [Protonix] 40 mg PO QDAC 07/22/21 09:00 dexAMETHasone [Decadron] 6 mg IVP DAILY guaiFENesin [Mucinex] 600 mg PO BID 07/22/21 12:45 Losartan Potassium [Cozaar] 100 mg PO DAILY 07/22/21 13:00 hydroCHLOROthiazide [Hydrodiuril] 25 mg PO DAILY 07/22/21 14:00 Remdesivir 100Mg Vial [Veklury] 100 mg Sodium Chloride 0.9% 100Ml [Normal Saline 0.9% 100Ml] 100 ml IV DAILY Subjective - Subjective Patient Reports: Resting Comfortably Objective Vital Signs: Vital Signs - 24 hr 07/21/21 07/21/21 07/21/21 12:51 14:20 14:37 Temperature 37.0 C Heart Rate 72 78 73 Heart Rate [ Brachial] Heart Rate [ Radial] Respiratory 16 20 20 Rate Blood Pressure 156/61 H 145/74 H Blood Pressure [Right Brachial artery] O2 Saturation 92 88 L 07/21/21 07/21/21 07/21/21 15:25 16:03 17:33 Temperature 37.1 C Heart Rate 79 69 Heart Rate [ 76 Brachial] Heart Rate [ Radial] Respiratory 20 16 20 Rate Blood Pressure 135/64 H Blood Pressure 165/63 H [Right Brachial artery] O2 Saturation 94 92 07/21/21 07/22/21 07/22/21 21:33 01:20 07:05 Temperature 37.1 C 37 C 37 C Heart Rate Heart Rate [ 67 73 74 Brachial] Heart Rate [ Radial] Respiratory 20 18 19 Rate Blood Pressure Blood Pressure 144/59 H 159/65 H 127/85 H [Right Brachial artery] O2 Saturation 95 95 92 07/22/21 10:57 Temperature 37.5 C Heart Rate Heart Rate [ Brachial] Heart Rate [ 71 Radial] Respiratory 19 Rate Blood Pressure Blood Pressure 176/51 H [Right Brachial artery] O2 Saturation 94 Oxygen O2 Source Nasal cannula Oxygen Flow Rate 2 I&O (Last 24 Hrs): Intake and Output Totals x24h 07/20/21 07/21/21 07/22/21 23:59 23:59 23:59 Intake Total 720 1290 Balance 720 1290 General: Alert, Oriented x3, Cooperative, No acute distress HEENT: Atraumatic Neck: Supple Lymphatic: no adenopathy Neuro: Alert, Non Focal, Oriented Times 3 Cardiovascular: Regular rate, Normal S1, Normal S2 Respiratory: Chest non-tender, No respiratory distress Abdomen: Normal bowel sounds, Soft Extremities: Normal pulses - Results Results: Laboratory Results WBC 8.0 x10^3/uL (4.8-10.8) 07/22/21 07:20 RBC 4.21 10^6/uL (4.20-5.40) 07/22/21 07:20 Hgb 12.9 g/dL (12.0-16.0) 07/22/21 07:20 Hct 39.2 % (37.0-47.0) 07/22/21 07:20 MCV 93.1 fL (81.0-99.0) 07/22/21 07:20 MCH 30.6 pg (27.0-31.0) 07/22/21 07:20 MCHC 32.9 g/dL (32.0-36.0) 07/22/21 07:20 RDW 15.1 % (12.0-15.0) H 07/22/21 07:20 Plt Count 324 10^3/uL (130-450) 07/22/21 07:20 MPV 9.3 fL (7.9-10.8) 07/22/21 07:20 Neut # (Auto) 6.1 10^3/uL (1.5-6.6) 07/22/21 07:20 Lymph # (Auto) 1.4 10^3/uL (1.5-3.5) L 07/22/21 07:20 [place] # (Auto) 0.5 10^3/uL (0.0-1.0) 07/22/21 07:20 Eos # (Auto) 0.0 10^3/uL (0.0-0.7) 07/22/21 07:20 Baso # (Auto) 0.0 10^3/uL (0.0-0.1) 07/22/21 07:20 Absolute Nucleated RBC 0.00 x10^3/uL 07/22/21 07:20 Nucleated RBC % 0.0 /100WBC 07/22/21 07:20 Manual Slide Review Indicated 07/22/21 07:20 WBC Morphology NORMAL APPEARANCE (NORMAL) 07/22/21 07:20 Platelet Estimate NORMAL (130-450,000) (NORMAL) 07/22/21 07:20 Platelet Morphology NORMAL APPEARANCE (NORMAL) 07/22/21 07:20 RBC Morph Micro Appear NORMAL APPEARANCE (NORMAL) 07/22/21 07:20 Sodium 142 mmol/L (135-145) 07/22/21 07:20 Potassium 4.0 mmol/L (3.5-5.0) 07/22/21 07:20 Chloride 103 mmol/L (101-111) 07/22/21 07:20 Carbon Dioxide 26 mmol/L (21-32) 07/22/21 07:20 Anion Gap 13.0 (6-13) 07/22/21 07:20 BUN 12 mg/dL (6-20) 07/22/21 07:20 Creatinine 0.7 mg/dL (0.4-1.0) 07/22/21 07:20 Estimated GFR (MDRD) 79 (>89) L 07/22/21 07:20 Glucose 126 mg/dL (70-100) H 07/22/21 07:20 Calcium 8.5 mg/dL (8.5-10.3) 07/22/21 07:20 Total Bilirubin 0.5 mg/dL (0.2-1.0) 07/21/21 15:00 AST 34 IU/L (10-42) 07/21/21 15:00 ALT 28 IU/L (10-60) 07/21/21 15:00 Alkaline Phosphatase 61 IU/L (42-121) 07/21/21 15:00 Lactate Dehydrogenase 245 IU/L (91-225) H 07/22/21 07:20 C-Reactive Protein 21.2 mg/dL (0-1.0) H 07/22/21 07:20 B-Natriuretic Peptide 256 pg/mL (5-100) H 07/21/21 15:00 Total Protein 7.1 g/dL (6.7-8.2) 07/21/21 15:00 Albumin 3.1 g/dL (3.2-5.5) L 07/21/21 15:00 Globulin 4.0 g/dL (2.1-4.2) 07/21/21 15:00 Albumin/Globulin Ratio 0.8 (1.0-2.2) L 07/21/21 15:00 Lipase 28 U/L (22-51) 07/21/21 15:00 Nasal Adenovirus (PCR) NOT DETECTED 07/21/21 14:55 Nasal B. parapertussis DNA (PCR) NOT DETECTED 07/21/21 14:55 Nasal Coronavir 229E PCR NOT DETECTED 07/21/21 14:55 Nasal Coronavir HKU1 PCR NOT DETECTED 07/21/21 14:55 Nasal Coronavir NL63 PCR NOT DETECTED 07/21/21 14:55 Nasal Coronavir OC43 PCR NOT DETECTED 07/21/21 14:55 Nasal Enterovir/Rhinovir PCR NOT DETECTED 07/21/21 14:55 Nasal Influenza B PCR NOT DETECTED 07/21/21 14:55 Nasal Influenza A PCR NOT DETECTED 07/21/21 14:55 Nasal Parainfluen 1 PCR NOT DETECTED 07/21/21 14:55 Nasal Parainfluen 2 PCR NOT DETECTED 07/21/21 14:55 Nasal Parainfluen 3 PCR NOT DETECTED 07/21/21 14:55 Nasal Parainfluen 4 PCR NOT DETECTED 07/21/21 14:55 Nasal RSV (PCR) NOT DETECTED 07/21/21 14:55 Nasal B.pertussis DNA PCR NOT DETECTED 07/21/21 14:55 Nasal C.pneumoniae (PCR) NOT DETECTED 07/21/21 14:55 Geoffrey Human Metapneumo PCR NOT DETECTED 07/21/21 14:55 Nasal M.pneumoniae (PCR) NOT DETECTED 07/21/21 14:55 Nasal SARS-CoV-2 (PCR) DETECTED A 07/21/21 14:55 - Procedures Procedures: Procedures REPLACEMENT OF LEFT LENS WITH SYNTH SUB, PERC APPROACH (07/21/15) REPLACEMENT OF RIGHT LENS WITH SYNTH SUB, PERC APPROACH (08/18/15) ABX Reporting Has patient been on IV antibiotics over the past 48 hours?: No Current Medications - Current Medications Current Medications: Active Medications Acetaminophen (Acetaminophen 325 Mg Tablet) 650 mg PO Q4HR PRN PRN Reason: Pain 1 to 4 Albuterol (Albuterol 1 Puff) 2 puffs INH Q4H PRN PRN Reason: Shortness of Air/Wheezing Benzonatate (Benzonatate 100 Mg Capsule) 100 mg PO TID PRN PRN Reason: Cough Last Admin: 07/22/21 08:24 Dose: 100 mg Dexamethasone (Dexamethasone 10 Mg/Ml Vial) 6 mg IVP DAILY [facility] Last Admin: 07/22/21 11:06 Dose: 6 mg Enoxaparin Sodium (Enoxaparin 40 Mg/0.4 Ml Syringe) 40 mg SUBQ DAILY [facility] Last Admin: 07/22/21 10:57 Dose: 40 mg Folic Acid (Folic Acid 1 Mg Tablet) 1 mg PO DAILY [facility] Last Admin: 07/22/21 10:57 Dose: 1 mg Guaifenesin (Guaifenesin 600 Mg Tablet) 600 mg PO BID [facility] Last Admin: 07/22/21 10:57 Dose: 600 mg Hydrochlorothiazide (Hydrochlorothiazide 25 Mg Tablet) 25 mg PO DAILY [facility] Last Admin: 07/22/21 13:47 Dose: 25 mg Remdesivir 100 mg/ Sodium (Chloride) 100 mls @ 200 mls/hr IV DAILY [facility] Stop: 07/25/21 09:29 Last Admin: 07/22/21 13:47 Dose: 200 mls/hr Latanoprost (Latanoprost 0.005% Ophth Drops) 1 drops EACHEYE QPM [facility] Last Admin: 07/21/21 21:40 Dose: 1 drops Losartan Potassium (Losartan 50 Mg Tablet) 100 mg PO DAILY [facility] Last Admin: 07/22/21 13:47 Dose: 100 mg Oxycodone HCl (Oxycodone 5 Mg Tablet) 5 mg PO Q4HR PRN PRN Reason: Pain 5 to 7 Pantoprazole Sodium (Pantoprazole 40 Mg Tablet) 40 mg PO QDAC [facility] Last Admin: 07/22/21 08:24 Dose: 40 mg Sodium Chloride (Sodium Chloride Flush 0.9% 10 Ml Syringe) 10 ml IVP PRN PRN PRN Reason: NEEDED PER PROVIDER ORDERS Last Admin: 07/22/21 13:47 Dose: 10 ml Sodium Chloride (Sodium Chloride Flush 0.9% 10 Ml Syringe) 10 ml IVP 0100,0900,1700 [facility] Last Admin: 07/22/21 08:30 Dose: 10 ml Throat Lozenges (Benzocaine/Menthol Lozenge) 1 lozenge MM Q2HR PRN PRN Reason: Throat pain Last Admin: 07/22/21 08:24 Dose: 1 lozenge Timolol Maleate (Timolol 0.5% Ophth Drops) 1 drops EACHEYE BID [facility] Last Admin: 07/22/21 10:59 Dose: 1 drops Latanoprost 0.005% Ophth Drops [Xalatan Ophth Drops] 1 drop EACHEYE QPM 07/21/15 estradioL [Estradiol (Twice Weekly)] 0.0375 mg TOP Q7D 07/21/15 hydroCHLOROthiazide [Hydrochlorothiazide] 25 mg PO DAILY 07/21/15 Losartan Potassium [Cozaar] 100 mg PO DAILY 07/21/21 Methotrexate [Methotrexate Sodium] 20 mg PO Q7D 07/21/21 Pantoprazole [Protonix] 40 mg PO QDAC 07/21/21 Timolol 0.5% Ophth Drops [Timoptic 0.5% Ophth Drops] 1 drops EACHEYE BID 07/21/21 predniSONE [Deltasone] 5 mg PO 0800 07/21/21
[2021-07-22] MEDS: LOSARTAN 50 MG TABLET PO SCH (13:47)
[2021-07-22] MEDS: hydroCHLOROthiazide 25 MG TABLET PO SCH (13:47)
[2021-07-22] MEDS: REMDESIVIR 100MG VIAL 100 MG in SODIUM CHLORIDE 0.9% 100ML 100 ML IV SCH (13:47)
[2021-07-22] MEDS: LATANOPROST 0.005% OPHTH DROPS EACHEYE SCH (21:18)
[2021-07-23] MEDS: BENZOCAINE/MENTHOL LOZENGE MM PRN ×2 (00:23→20:41)
[2021-07-23] MEDS: BENZONATATE 100 MG CAPSULE PO PRN ×2 (00:24→17:51)
[2021-07-23] MEDS: SODIUM CHLORIDE FLUSH 0.9% 10 ML SYRINGE IVP SCH ×3 (00:24→17:51)
[2021-07-23 06:36] LABS: BASOPHILS % (AUTO) 0.1 %; HCT - HEMATOCRIT 37.5 % (37.0-47.0); HGB - HEMOGLOBIN 12.4 g/dL (12.0-16.0); LYMPHOCYTES # (AUTO) 1.7 10^3/uL (1.5-3.5); LYMPHOCYTES % (AUTO) 20.6 %; MEAN CORPUSCULAR HEMOGLOBIN 30.4 pg (27.0-31.0); MEAN CORPUSCULAR HGB CONC 33.1 g/dL (32.0-36.0); MEAN CORPUSCULAR VOLUME 91.9 fL (81.0-99.0); MEAN PLATELET VOLUME 9.1 fL (7.9-10.8); MONOCYTES # (AUTO) 0.8 10^3/uL (0.0-1.0); MONOCYTES % (AUTO) 10.1 %; NEUTROPHILS # (AUTO) 5.7 10^3/uL (1.5-6.6); NEUTROPHILS % (AUTO) 68.6 %; PLT - PLATELET COUNT 375 10^3/uL (130-450); RED BLOOD COUNT 4.08 10^6/uL (4.20-5.40); RED CELL DISTRIBUTION WIDTH 15.2 % (12.0-15.0); WHITE BLOOD COUNT 8.4 x10^3/uL (4.8-10.8)
[2021-07-23] MEDS: PANTOPRAZOLE 40 MG TABLET PO SCH (06:39)
[2021-07-23 06:54] LABS: CALCIUM 9.1 mg/dL (8.5-10.3); CREATININE 0.7 mg/dL (0.4-1.0); CRP - C-REACTIVE PROTEIN 12.3 mg/dL (0-1.0); POTASSIUM 3.8 mmol/L (3.5-5.0)
[2021-07-23] MEDS: DEXAMETHASONE 10 MG/ML VIAL IVP SCH (09:01)
[2021-07-23] MEDS: hydroCHLOROthiazide 25 MG TABLET PO SCH (09:02)
[2021-07-23] MEDS: FOLIC ACID 1 MG TABLET PO SCH (09:02)
[2021-07-23] MEDS: ENOXAPARIN 40 MG/0.4 ML SYRINGE SUBQ SCH (09:02)
[2021-07-23] MEDS: guaiFENesin 600 MG TABLET PO SCH ×2 (09:02→20:41)
[2021-07-23] MEDS: LOSARTAN 50 MG TABLET PO SCH (09:02)
[2021-07-23] MEDS: REMDESIVIR 100MG VIAL 100 MG in SODIUM CHLORIDE 0.9% 100ML 100 ML IV SCH (09:03)
[2021-07-23] MEDS: TIMOLOL 0.5% OPHTH DROPS EACHEYE SCH ×2 (09:03→20:41)
[2021-07-23] MEDS: ACETAMINOPHEN 325 MG TABLET PO PRN ×2 (13:45→18:02)
--- NOTE | 2021-07-23 16:06 | PROVIDER PROGRESS NOTE ---
Subjective - Prog Note Date Prog Note Date: 07/23/21 - Subjective Pt reports feeling: Worse Subjective: Pt reports she is not feeling well today, "tired and worn out". Also feeling short of breath on 2L so she was increased to 3L NC. She was not in acute respiratory distress but did report feeling better after the oxygen was increased. Her sense of taste is slowly returning but she is not hungry. Denies pain. Objective - Vital Signs/Intake & Output Reviewed Vital Signs: Yes Vital Signs: Vital Signs x48h Temp Pulse Resp BP BP Pulse Ox 07/23/21 13:55 36.5 C 76 19 149/69 H 94 07/23/21 09:14 36.6 C 66 18 149/58 H 91 L Intake & Output: Intake & Output 07/20/21 07/21/21 07/22/21 07/23/21 23:59 23:59 23:59 23:59 Intake Total 720 2190 350 Output Total 50 Balance 720 2140 350 - Objective General Appearance: positive: No acute distress, Alert Eyes Bilateral: positive: Normal inspection, PERRL ENT: positive: ENT inspection nml, No signs of dehydration Respiratory: positive: Chest non-tender, Wheezes Cardiovascular: positive: Regular rate & rhythm, No murmur Peripheral Pulses: 2+ Dorsalis pedis (R), 2+ Dorsalis pedis (L) Abdomen: positive: Non-tender, No organomegaly, Nml bowel sounds, No distention Skin: positive: Diaphoresis, Pallor Extremities: positive: Full ROM, Nml appearance, No pedal edema Neurologic/Psychiatric: positive: Oriented x3 - Lab Results Fish Bones: 07/23/21 06:16 07/23/21 06:16 Other Labs: Lab Results x24hrs 07/23/21 07/23/21 07/23/21 Range/Units 06:16 06:16 06:16 WBC 8.4 (4.8-10.8) x10^3/uL RBC 4.08 L (4.20-5.40) 10^6/uL Hgb 12.4 (12.0-16.0) g/dL Hct 37.5 (37.0-47.0) % MCV 91.9 (81.0-99.0) fL MCH 30.4 (27.0-31.0) pg MCHC 33.1 (32.0-36.0) g/dL RDW 15.2 H (12.0-15.0) % Plt Count 375 (130-450) 10^3/uL MPV 9.1 (7.9-10.8) fL Neut # (Auto) 5.7 (1.5-6.6) 10^3/uL Lymph # (Auto) 1.7 (1.5-3.5) 10^3/uL [place] # (Auto) 0.8 (0.0-1.0) 10^3/uL Eos # (Auto) 0.0 (0.0-0.7) 10^3/uL Baso # (Auto) 0.0 (0.0-0.1) 10^3/uL Absolute Nucleated RBC 0.00 x10^3/uL Nucleated RBC % 0.0 /100WBC Sodium 142 (135-145) mmol/L Potassium 3.8 (3.5-5.0) mmol/L Chloride 103 (101-111) mmol/L Carbon Dioxide 26 (21-32) mmol/L Anion Gap 13.0 (6-13) BUN 20 (6-20) mg/dL Creatinine 0.7 (0.4-1.0) mg/dL Estimated GFR (MDRD) 79 L (>89) Glucose 140 H (70-100) mg/dL Calcium 9.1 (8.5-10.3) mg/dL Lactate Dehydrogenase 245 H (91-225) IU/L C-Reactive Protein 12.3 H (0-1.0) mg/dL Coronavirus (PCR) 07/21/21 Range/Units 13:38 WBC (4.8-10.8) x10^3/uL RBC (4.20-5.40) 10^6/uL Hgb (12.0-16.0) g/dL Hct (37.0-47.0) % MCV (81.0-99.0) fL MCH (27.0-31.0) pg MCHC (32.0-36.0) g/dL RDW (12.0-15.0) % Plt Count (130-450) 10^3/uL MPV (7.9-10.8) fL Neut # (Auto) (1.5-6.6) 10^3/uL Lymph # (Auto) (1.5-3.5) 10^3/uL [place] # (Auto) (0.0-1.0) 10^3/uL Eos # (Auto) (0.0-0.7) 10^3/uL Baso # (Auto) (0.0-0.1) 10^3/uL Absolute Nucleated RBC x10^3/uL Nucleated RBC % /100WBC Sodium (135-145) mmol/L Potassium (3.5-5.0) mmol/L Chloride (101-111) mmol/L Carbon Dioxide (21-32) mmol/L Anion Gap (6-13) BUN (6-20) mg/dL Creatinine (0.4-1.0) mg/dL Estimated GFR (MDRD) (>89) Glucose (70-100) mg/dL Calcium (8.5-10.3) mg/dL Lactate Dehydrogenase (91-225) IU/L C-Reactive Protein (0-1.0) mg/dL Coronavirus (PCR) POSITIVE Assessment/Plan - Problem List (1) Acute respiratory failure with hypoxia Impression: Stable. This morning her oxygen saturation was 91% on 2L NC. She felt dyspnic and uncomfortable but this resolved when the oxygen was increased to 3L. she has since been satting in the mid 90s on 3L. She is not showing acute respiratory distress. She continues on Remdesivir, Decadron, and Lovenox with supplemental oxygen as needed. Per chart review she was initially satting 88% on room air and reporting cough, wheezing, malaise, fatigue, loss of appetite and smell. Afebrile at home. She has been vaccinated but had not gotten a booster. (2) Pneumonia due to COVID-19 virus Impression: She admitted with cough, wheezing, malaise, fatigue, and loss of appetite and smell. She has been afebrile. Given her hypoxia she has been receiving treatment with Remdesivir, Decadron, and Lovenox (DVT prophylaxis). Her CXR was unremarkable for an acute process, will continue to monitor. She has been having a more productive cough today with yellow/white sputum per her report. Will plan to continue to monitor. If she develops further increased oxygen requirements, fever or leukocytosis will plan to obtain another chest x-ray and blood and sputum cultures. (3) HTN (hypertension) Impression: Stable. Systolic BPs have been 140s-160s/60s today. Home meds have been resumed Qualifiers: Hypertension type: primary hypertension Qualified Code(s): I10 - Essential (primary) hypertension (4) Hypokalemia Impression: Resolved. Potassium 3.8 today.
[2021-07-23] MEDS: LATANOPROST 0.005% OPHTH DROPS EACHEYE SCH (20:41)
[2021-07-24] MEDS: BENZONATATE 100 MG CAPSULE PO PRN (01:33)
[2021-07-24] MEDS: SODIUM CHLORIDE FLUSH 0.9% 10 ML SYRINGE IVP SCH ×3 (01:33→15:42)
[2021-07-24] MEDS: PANTOPRAZOLE 40 MG TABLET PO SCH (05:12)
[2021-07-24 06:12] LABS: BASOPHILS % (AUTO) 0.1 %; EOSINOPHILS % (AUTO) 2.1 %; HGB - HEMOGLOBIN 12.5 g/dL (12.0-16.0); LYMPHOCYTES % (AUTO) 19.9 %; MEAN CORPUSCULAR HEMOGLOBIN 30.5 pg (27.0-31.0); MEAN CORPUSCULAR HGB CONC 32.9 g/dL (32.0-36.0); MEAN CORPUSCULAR VOLUME 92.7 fL (81.0-99.0); MEAN PLATELET VOLUME 9.1 fL (7.9-10.8); MONOCYTES % (AUTO) 10.4 %; NEUTROPHILS % (AUTO) 67.1 %; PLT - PLATELET COUNT 394 10^3/uL (130-450); RED CELL DISTRIBUTION WIDTH 14.9 % (12.0-15.0); WHITE BLOOD COUNT 7.7 x10^3/uL (4.8-10.8)
[2021-07-24 06:25] LABS: BAND NEUTROPHILS % (MANUAL) 0 %
[2021-07-24 06:31] LABS: CALCIUM 8.9 mg/dL (8.5-10.3); CREATININE 0.6 mg/dL (0.4-1.0); CRP - C-REACTIVE PROTEIN 6.8 mg/dL (0-1.0); POTASSIUM 3.6 mmol/L (3.5-5.0)
[2021-07-24 06:50] LABS: ABNORMAL LYMPHS % (MANUAL) 1 %; DIFFERENTIAL COMMENT MANUAL DIFFERENTIAL; LYMPHOCYTES # (MANUAL) 1.3 10^3/uL (1.5-3.5); LYMPHOCYTES % (MANUAL) 16 %; MONOCYTES # (MANUAL) 0.4 10^3/uL (0.0-1.0); PLATELET ESTIMATE, MANUAL NORMAL (130-450,000) (NORMAL); PLATELET MORPHOLOGY NORMAL APPEARANCE (NORMAL); RBC MORPHOLOGY (MULTIPLE) NORMAL APPEARANCE (NORMAL); WBC MORPHOLOGY (MULTIPLE) NORMAL APPEARANCE (NORMAL)
--- NOTE | 2021-07-24 08:21 | PROVIDER PROGRESS NOTE ---
Subjective - Prog Note Date Prog Note Date: 07/24/21 - Subjective Pt reports feeling: No change Subjective: Pt continues to have a dry cough and feel slightly short of breath. She remains on 3L nasal cannula, satting 92%. Denies pain, nausea or vomiting. Believes her sense of taste is improving. Objective - Vital Signs/Intake & Output Vital Signs: Vital Signs x48h Temp Pulse Pulse Pulse Resp BP Pulse Ox 07/24/21 05:25 69 169/68 H 07/24/21 05:00 37.1 C 61 19 176/68 H 93 07/24/21 04:53 37 C 72 18 94 07/24/21 01:40 72 167/63 H 07/24/21 01:35 72 18 173/61 H 94 07/24/21 01:12 37 C 70 18 167/70 H 95 Intake & Output: Intake & Output 07/21/21 07/22/21 07/23/21 07/24/21 23:59 23:59 23:59 23:59 Intake Total 720 2190 1440 300 Output Total 50 Balance 720 2140 1440 300 - Objective General Appearance: positive: No acute distress, Alert ENT: positive: ENT inspection nml, No signs of dehydration Respiratory: positive: Chest non-tender, Other (Dry, intermittently productive cough with white sputum per patient. Wheezes and coarse crackles heard bilaterally in the bases.) Cardiovascular: positive: Regular rate & rhythm, No murmur Abdomen: positive: Non-tender, No organomegaly, Nml bowel sounds, No distention Skin: positive: Diaphoresis, Pallor Extremities: positive: Non-tender, Full ROM, Nml appearance, No pedal edema Neurologic/Psychiatric: positive: Oriented x3 - Lab Results Fish Bones: 07/24/21 05:30 07/24/21 05:30 Other Labs: Lab Results x24hrs 07/24/21 07/24/21 07/24/21 Range/Units 05:30 05:30 05:30 WBC 7.7 (4.8-10.8) x10^3/uL RBC 4.10 L (4.20-5.40) 10^6/uL Hgb 12.5 (12.0-16.0) g/dL Hct 38.0 (37.0-47.0) % MCV 92.7 (81.0-99.0) fL MCH 30.5 (27.0-31.0) pg MCHC 32.9 (32.0-36.0) g/dL RDW 14.9 (12.0-15.0) % Plt Count 394 (130-450) 10^3/uL MPV 9.1 (7.9-10.8) fL Neut # (Auto) Not Reportable Lymph # (Auto) Not Reportable [place] # (Auto) Not Reportable Eos # (Auto) Not Reportable Baso # (Auto) Not Reportable Absolute Nucleated RBC Not Reportable Total Counted 100 Band Neuts % (Manual) 0 (0 - 10) % Abnorm Lymph % (Manual) 1 % Nucleated RBC % Not Reportable Neutrophils # (Manual) 6.0 (1.5-6.6) 10^3/uL Lymphocytes # (Manual) 1.3 L (1.5-3.5) 10^3/uL Monocytes # (Manual) 0.4 (0.0-1.0) 10^3/uL Eosinophils # (Manual) 0.0 (0-0.7) 10^3/uL Basophils # (Manual) 0.0 (0-0.1) 10^3/uL Differential Comment MANUAL DIFFERENTIAL WBC Morphology NORMAL APPEARANCE (NORMAL) Platelet Estimate NORMAL (130-450,000) (NORMAL) Platelet Morphology NORMAL APPEARANCE (NORMAL) RBC Morph Micro Appear NORMAL APPEARANCE (NORMAL) Sodium 136 (135-145) mmol/L Potassium 3.6 (3.5-5.0) mmol/L Chloride 97 L (101-111) mmol/L Carbon Dioxide 28 (21-32) mmol/L Anion Gap 11.0 (6-13) BUN 20 (6-20) mg/dL Creatinine 0.6 (0.4-1.0) mg/dL Estimated GFR (MDRD) 95 (>89) Glucose 153 H (70-100) mg/dL Calcium 8.9 (8.5-10.3) mg/dL Lactate Dehydrogenase 239 H (91-225) IU/L C-Reactive Protein 6.8 H (0-1.0) mg/dL Assessment/Plan - Problem List (1) Acute respiratory failure with hypoxia Impression: Stable. She is satting 92% on 3L NC. She is not showing acute respiratory distress but does report feeling uncomfortable. She has a dry cough, intermittently productive of white sputum per her report. She continues on Remdesivir, Decadron, and Lovenox with supplemental oxygen as needed. RT performed an ambulatory desat test today. She was hypoxic at rest on room air, with O2 sats of 86%. On 2 lpm nasal cannula at rest, her O2 sats improved to 90%. With exertion on 2 lpm nasal cannula, her O2 sats were 85%, on 3 lpm they were 87%, and finally on 5 lpm her O2 sats improved to 91%. Per chart review she was initially satting 88% on room air and reporting cough, wheezing, malaise, fatigue, loss of appetite and smell. Afebrile at home. She has been vaccinated but had not gotten a booster. (2) Pneumonia due to COVID-19 virus Impression: She admitted with cough, wheezing, malaise, fatigue, and loss of appetite and smell. She has been afebrile. Given her hypoxia she has been receiving treatment with Remdesivir, Decadron, and Lovenox (DVT prophylaxis). Her CXR was unremarkable for an acute process, will continue to monitor. She has been having a more productive cough today with intermittently white sputum per her report. If she develops further increased oxygen requirements, fever or leukocytosis will plan to obtain another chest x-ray and blood and sputum cult ures. (3) HTN (hypertension) Impression: Stable. Systolic BPs have been 160s-170s/60s today. Home meds were resumed on 07/22. Since she remains hypertensive will add Norvasc 5mg po daily and continue to monitor. Qualifiers: Hypertension type: primary hypertension Qualified Code(s): I10 - Essential (primary) hypertension (4) Hypokalemia Impression: Resolved. Potassium 3.6 today.
[2021-07-24] MEDS: ENOXAPARIN 40 MG/0.4 ML SYRINGE SUBQ SCH (09:34)
[2021-07-24] MEDS: FOLIC ACID 1 MG TABLET PO SCH (09:34)
[2021-07-24] MEDS: guaiFENesin 600 MG TABLET PO SCH ×2 (09:34→21:27)
[2021-07-24] MEDS: hydroCHLOROthiazide 25 MG TABLET PO SCH (09:34)
[2021-07-24] MEDS: DEXAMETHASONE 10 MG/ML VIAL IVP SCH (09:34)
[2021-07-24] MEDS: LOSARTAN 50 MG TABLET PO SCH (09:35)
[2021-07-24] MEDS: REMDESIVIR 100MG VIAL 100 MG in SODIUM CHLORIDE 0.9% 100ML 100 ML IV SCH (09:35)
[2021-07-24] MEDS: TIMOLOL 0.5% OPHTH DROPS EACHEYE SCH ×2 (09:36→21:31)
[2021-07-24] MEDS: BENZOCAINE/MENTHOL LOZENGE MM PRN (21:28)
[2021-07-24] MEDS: ACETAMINOPHEN 325 MG TABLET PO PRN (21:28)
[2021-07-24] MEDS: LATANOPROST 0.005% OPHTH DROPS EACHEYE SCH (21:30)
[2021-07-25] MEDS: SODIUM CHLORIDE FLUSH 0.9% 10 ML SYRINGE IVP SCH ×2 (02:45→09:59)
[2021-07-25] MEDS: PANTOPRAZOLE 40 MG TABLET PO SCH (05:53)
[2021-07-25] MEDS: ACETAMINOPHEN 325 MG TABLET PO PRN (05:55)
[2021-07-25 06:26] LABS: HCT - HEMATOCRIT 37.1 % (37.0-47.0); HGB - HEMOGLOBIN 12.4 g/dL (12.0-16.0); MEAN CORPUSCULAR HEMOGLOBIN 30.5 pg (27.0-31.0); MEAN CORPUSCULAR HGB CONC 33.4 g/dL (32.0-36.0); MEAN CORPUSCULAR VOLUME 91.4 fL (81.0-99.0); MONOCYTES % (AUTO) 11.4 %; NEUTROPHILS % (AUTO) 69.1 %; PLT - PLATELET COUNT 391 10^3/uL (130-450); RED BLOOD COUNT 4.06 10^6/uL (4.20-5.40); RED CELL DISTRIBUTION WIDTH 14.5 % (12.0-15.0); WHITE BLOOD COUNT 7.6 x10^3/uL (4.8-10.8)
[2021-07-25 06:33] LABS: ABNORMAL LYMPHS % (MANUAL) 0 %
[2021-07-25 06:41] LABS: CALCIUM 9.1 mg/dL (8.5-10.3); CREATININE 0.6 mg/dL (0.4-1.0); CRP - C-REACTIVE PROTEIN 3.5 mg/dL (0-1.0); POTASSIUM 3.5 mmol/L (3.5-5.0)
[2021-07-25 06:49] LABS: BAND NEUTROPHILS % (MANUAL) 7 %; LYMPHOCYTES # (MANUAL) 1.1 10^3/uL (1.5-3.5); LYMPHOCYTES % (MANUAL) 15 %; MONOCYTES # (MANUAL) 0.5 10^3/uL (0.0-1.0); NEUTROPHILS # (MANUAL) 5.9 10^3/uL (1.5-6.6); RBC MORPHOLOGY (MULTIPLE) NORMAL APPEARANCE (NORMAL)
[2021-07-25 06:50] LABS: DIFFERENTIAL COMMENT MANUAL DIFFERENTIAL; PLATELET ESTIMATE, MANUAL NORMAL (130-450,000) (NORMAL)
--- NOTE | 2021-07-25 07:47 | Discharge Plan ---
Discharge Plan Problem Reviewed?: Yes Disposition: Home, Self Care Condition: Fair Prescriptions: dexAMETHasone [Decadron] 6 mg PO 0800 #9 tablet Folic Acid 1 mg PO DAILY #30 tablet amLODIPine [Norvasc] 5 mg PO DAILY #30 tablet guaiFENesin/CODEINE [Robitussin AC] 5 ml PO Q6H #30 ml Benzonatate [Tessalon] 100 mg PO TID PRN #45 PRN Reason: Cough Diet: Regular Activity Restrictions: Activity as Tolerated Shower Restrictions: No Driving Restrictions: Yes (no driving while on oxygen) Health Concerns: You came to our emergency room because of a persistent cough; you were very tired; you had lost your sense of taste, and were short of breath. Your COVID test, unfortunately, was positive and you have been treated for COVID infection. Your chest xray did not show severe pneumonia as we usually see with covid so that was good news. You have done very well except for needing oxygen and a dry cough. You have completed the antiviral therapy with remdesivir and still need 6 more days of steroid therapy with Decadron. You are now ready to go home but will need oxygen temporarily. Plan of Treatment: 1. Please see your regular primary care provider in the next 1 to 2 weeks. You will need to check your oxygen levels to see how you are doing on your oxygen. We usually do not send people home as soon as we are doing with you but you are doing so well. You have a terrible cough and I will send you home with cough medicine. Robitussin-AC. If you at all feel like you are sliding backwards, please come back to the see your primary care provider or the emergency room. 2. You will be on oxygen. We measure oxygen flow by Liters/min. When you are sitting, watching TV, at rest, you will need 2 L/min. When you are walking around the house, taking a shower, walking to the kitchen, or any activity you will need 5 L/min. 3. Please finish the steroid therapy we use for COVID. We used Decadron. You will need 6 more days of Decadron. While you are on the Decadron, do not take your prednisone. When you have finished the Decadron you can go back on your prednisone. 4. Because you are on methotrexate, you need to take folic acid. I am resuming your methotrexate but please do not take it for the next 6 days. 5. While you were here, your blood pressure was much higher than we would like. This is in spite of you being on a regular blood pressure medicines. We would like to start you on Norvasc 5 mg a day. We have called that into the pharmacy. Your primary care provider should check your blood pressure the next time you see them as well. Care Goals: At this time goal will be to get over this COVID infection, get back to baseline lung status where you do not need oxygen. Please make sure you take several small walks a day so that you do not get deconditioned and too weak. This will also reduce your risk of blood clots in your legs from sitting too long. Assessment: Patient states that she feels good enough to go home. She feels safe about it. Promises to follow through with oxygen and seeing her primary care provider. No Smoking: If you smoke, Please STOP! Call for help. Follow-up with: Mayra Ulloa PA-C [Primary Care Provider] -
--- NOTE | 2021-07-25 07:58 | DISCHARGE SUMMARY ---
"Discharge Summary Admit Date: 07/21/21 Discharge Date: 07/25/21 Discharging Provider: Sparkle Washington MD Primary Care Provider: CHERISE Kruse Code Status: Do Not Attempt Resuscitation Condition at Discharge: Fair Discharge Disposition: 01 Home, Self Care - DIAGNOSES Discharge Diagnoses with Status of Each Condition: 1. Acute respiratory failure with hypoxia 2. COVID infection 3. Hypertension 4. Hypokalemia 5. Immunocompromise state 6. Chronic steroid use - HPI History of Present Illness: This is a 86-years old female with a past medical history significant for hypertension, GERD, incontinence, osteoarthritis, asthma, who present ER complain of persisting cough, fatigue, loss of taste, shortness of breath. Pt report after her family had Rain Zapien., her two children had cough, upper respiratory symptoms first, then other family member including pt herself became sick. She had cough, wheezing, fatigue, malaise. She denies fever at the home. she became loss of appetite, very weak. She denies nausea or vomiting. she report she had once of diarrhea on today. She was vaccinated twice but not have booster yet. Covid 19 test in ER show positive. CXR reveals Unremarkable for acute process. In ER, patient is afebrile, patient had 88% O2 sat on room air. Given above pt's medical conditions, medical team was consulted for admission. Discussed the care goal with patient, patient hope to have DNR - Past Medical History Cardiovascular: reports: Hypertension Respiratory: reports: None Endocrine/Autoimmune: reports: None GI: reports: GERD : reports: Incontinence HEENT: reports: None Psych: reports: None Musculoskeletal: reports: Osteoarthritis Derm: reports: None MRSA Hx?: No - Past Surgical History General: reports: Cholecystectomy, Appendectomy Ortho: reports: Hip replacement, Knee replacement, Shoulder arthroplasty, Spine surgery, Other /MEAT STUFFER: reports: Hysterectomy HEENT: reports: Cataracts - CONSULTS | PROCEDURES Procedures: Chest x-ray was without acute cardiopulmonary process. - HOSPITAL COURSE Hospital Course: The patient was treated with nasal cannula oxygen, remdesivir, and decadron. She tolerated that well and at no time did she require BiPAP. Oxygen levels stabilized over several days. She was eating well, vital signs were stable, and she preferred to go home with oxygen as opposed to stay in the hospital. Chest x-ray was clear of pneumonia and without acute process. As that she was stable enough to be discharged home. She will require oxygen therapy for acute respiratory failure with hypoxia. She is now in the chronic phase. She will require 2 L nasal cannula at rest, and 5 L nasal cannula with exertion. O2 sat at rest, on room air is 86%. Pulse 64. O2 sat at rest with 2 L nasal cannula was 90%. When she walked, 2 L only resulted in 85% saturation. 3 L resulted in 87% saturation and finally 4 L resulted in 88% saturation. She will need 5 L to be above 90%. Cough was her main problem. And she received good relief with Tessalon and Robitussin-AC. As such she will be sent home with a short-term prescription for this. She will complete 6 more days of Decadron. When she is completed 5 days of remdesivir. She is eating 50 to 75% of her food. Glucose was mildly elevated in the 150s. On her admission medication list we note that she is on methotrexate and prednisone. We feel she is immunocompromise. She is already been vaccinated for COVID and is short a booster shot that she will get in the outpatient setting. We also note that she is not on folic acid and have prescribed that at discharge. Blood pressure was elevated during her stay to 160 and 170 systolic on a regular basis. As such Norvasc was added to her blood pressure regimen. While she is discharged on Decadron for 6 more days, we have asked her to stop her prednisone for those 6 days. Resume the prednisone when she is off Decadron. Discharged in stable condition. Temperature is 36.6. Heart rate 64. Blood pressure 156/72. Respirations 19. She is currently 95 % saturated on 3 L at rest. She is 5 foot 2 inches tall and weighs 85 kg. She is a queenie, short statured elderly female, very deaf. Prefers to have her hearing aids and when you speak to her. Neck is supple with shotty adenopathy. Lungs are clear. She frequently coughs and brings up thick clear secretions. She can get easily tachypneic if she talks too much and tries to walk at the same time. Regular rate and rhythm. Abdomen is benign. No pedal edema. Greater than 30 min was spent coordinating discharge. - ALLERGIES Allergies/Adverse Reactions: Allergies Allergy/AdvReac Type Severity Reaction Status Date / Time No Known Drug Allergies Allergy Verified 07/21/21 12:50 - MEDICATIONS Home Medications: Ambulatory Orders Medication Instructions Recorded Confirmed Latanoprost 0.005% Ophth Drops 1 drop EACHEYE QPM 07/21/15 07/21/21 [Xalatan Ophth Drops] estradioL [Estradiol (Twice 0.0375 mg TOP Q7D 07/21/15 07/21/21 Weekly)] hydroCHLOROthiazide 25 mg PO DAILY 07/21/15 07/21/21 [Hydrochlorothiazide] Losartan Potassium [Cozaar] 100 mg PO DAILY 07/21/21 07/21/21 Methotrexate [Methotrexate Sodium] 20 mg PO Q7D 07/21/21 07/21/21 Pantoprazole [Protonix] 40 mg PO QDAC 07/21/21 07/21/21 Timolol 0.5% Ophth Drops [Timoptic 1 drops EACHEYE BID 07/21/21 07/21/21 0.5% Ophth Drops] predniSONE [Deltasone] 5 mg PO 0800 07/21/21 07/21/21 Benzonatate [Tessalon] 200 mg PO TID #21 cap 07/25/21 Folic Acid 1 mg PO DAILY #30 tablet 07/25/21 amLODIPine [Norvasc] 5 mg PO DAILY #30 tablet 07/25/21 dexAMETHasone [Decadron] 6 mg PO 0800 #9 tablet 07/25/21 guaiFENesin [Mucinex] 600 mg PO BID tablet 07/25/21 guaiFENesin/CODEINE [Robitussin AC] 5 ml PO Q6H #30 ml 07/25/21 - LABS Result Diagrams: 07/25/21 06:09 07/25/21 06:09"
[2021-07-25] MEDS ORDERED: amLODIPine 5 MG TABLET PO SCH (09:00)
[2021-07-25] MEDS: ENOXAPARIN 40 MG/0.4 ML SYRINGE SUBQ SCH (09:57)
[2021-07-25] MEDS: FOLIC ACID 1 MG TABLET PO SCH (09:57)
[2021-07-25] MEDS: hydroCHLOROthiazide 25 MG TABLET PO SCH (09:57)
[2021-07-25] MEDS: LOSARTAN 50 MG TABLET PO SCH (09:57)
[2021-07-25] MEDS: guaiFENesin 600 MG TABLET PO SCH (09:57)
[2021-07-25] MEDS: DEXAMETHASONE 10 MG/ML VIAL IVP SCH (09:57)
[2021-07-25] MEDS: TIMOLOL 0.5% OPHTH DROPS EACHEYE SCH (09:58)
[2021-07-25] MEDS: REMDESIVIR 100MG VIAL 100 MG in SODIUM CHLORIDE 0.9% 100ML 100 ML IV SCH (09:59)
[2021-07-25 11:34] VITALS: BP 156/72
== END 2021-07-25 12:10 | disposition home or self-care (01) | DRG 177 ==
LOC: ED 12:47 → MS2 16:27
PROVIDERS: ADMIT Internal Medicine Hematology & Oncology; ATTEND Specialist
PROC: XW033E5 Introduction of Remdesivir Anti-infective into Peripheral Vein, Percutaneous Approach, New Technology Group 5 (ICD-10-PCS; principal; 2021-07-21)
PROC: 3E0333Z Introduction of Anti-inflammatory into Peripheral Vein, Percutaneous Approach (ICD-10-PCS; 2021-07-21)
DX: U07.1 COVID-19 (principal); J22 Unspecified acute lower respiratory infection; R09.02 Hypoxemia; J44.9 Chronic obstructive pulmonary disease, unspecified; R53.1 Weakness; J12.82 Pneumonia due to coronavirus disease 2019; J96.01 Acute respiratory failure with hypoxia; D84.821 Immunodeficiency due to drugs; I10 Essential (primary) hypertension; E87.6 Hypokalemia; Z79.52 Long term (current) use of systemic steroids; K21.9 Gastro-esophageal reflux disease without esophagitis; R32 Unspecified urinary incontinence; Z87.891 Personal history of nicotine dependence; Z79.899 Other long term (current) drug therapy; H91.93 Unspecified hearing loss, bilateral; M19.90 Unspecified osteoarthritis, unspecified site; Z66 Do not resuscitate
CPT/HCPCS: 36415; 71045; 80048; 80053; 83615; 83690; 83880; 85025; 86140; 87631; 94640; 94664; 94761; 99284; 99285; A9270; J1650; U0004; 0202U

== ENCOUNTER 2021-08-12 08:00 | Outpatient (CLI) | payer MEDICARE, OTHER ==
[2021-08-12 18:21] LABS: ALBUMIN 2.5 g/dL (3.2-5.5); ALBUMIN/GLOBULIN RATIO 0.5 (1.0-2.2); BILIRUBIN,TOTAL 0.5 mg/dL (0.2-1.0); CALCIUM 9.1 mg/dL (8.5-10.3); CREATININE 0.8 mg/dL (0.4-1.0); CRP - C-REACTIVE PROTEIN 14.4 mg/dL (0-1.0); POTASSIUM 3.7 mmol/L (3.5-5.0); TOTAL PROTEIN 7.4 g/dL (6.7-8.2)
[2021-08-12 18:36] LABS: BASOPHILS # (AUTO) 0.1 10^3/uL (0.0-0.1); BASOPHILS % (AUTO) 0.9 %; EOSINOPHILS # (AUTO) 0.7 10^3/uL (0.0-0.7); EOSINOPHILS % (AUTO) 7.1 %; HCT - HEMATOCRIT 36.8 % (37.0-47.0); HGB - HEMOGLOBIN 11.8 g/dL (12.0-16.0); LYMPHOCYTES # (AUTO) 2.1 10^3/uL (1.5-3.5); LYMPHOCYTES % (AUTO) 21.3 %; MEAN CORPUSCULAR HEMOGLOBIN 29.7 pg (27.0-31.0); MEAN CORPUSCULAR HGB CONC 32.1 g/dL (32.0-36.0); MEAN CORPUSCULAR VOLUME 92.7 fL (81.0-99.0); MEAN PLATELET VOLUME 9.4 fL (7.9-10.8); MONOCYTES # (AUTO) 0.8 10^3/uL (0.0-1.0); MONOCYTES % (AUTO) 7.9 %; NEUTROPHILS % (AUTO) 62.3 %; PLT - PLATELET COUNT 301 10^3/uL (130-450); RED BLOOD COUNT 3.97 10^6/uL (4.20-5.40); RED CELL DISTRIBUTION WIDTH 14.6 % (12.0-15.0); WHITE BLOOD COUNT 9.7 x10^3/uL (4.8-10.8)
== END 2021-08-12 23:59 | disposition home or self-care (01) ==
LOC: LAB.WCP 08:00
PROVIDERS: ATTEND Physician Assistant Medical
DX: U07.1 COVID-19 (principal)
CPT/HCPCS: 36415; 80053; 85025; 86140

== ENCOUNTER 2021-09-29 10:00 | Outpatient (CLI) | payer MEDICARE, OTHER ==
[2021-09-29 12:22] LABS: BASOPHILS # (AUTO) 0.1 10^3/uL (0.0-0.1); BASOPHILS % (AUTO) 0.6 %; EOSINOPHILS # (AUTO) 0.4 10^3/uL (0.0-0.7); EOSINOPHILS % (AUTO) 3.1 %; HCT - HEMATOCRIT 43.8 % (37.0-47.0); HGB - HEMOGLOBIN 13.8 g/dL (12.0-16.0); LYMPHOCYTES % (AUTO) 44.7 %; MEAN CORPUSCULAR HEMOGLOBIN 29.2 pg (27.0-31.0); MEAN CORPUSCULAR HGB CONC 31.5 g/dL (32.0-36.0); MEAN CORPUSCULAR VOLUME 92.6 fL (81.0-99.0); MEAN PLATELET VOLUME 9.4 fL (7.9-10.8); MONOCYTES # (AUTO) 1.2 10^3/uL (0.0-1.0); MONOCYTES % (AUTO) 8.6 %; NEUTROPHILS # (AUTO) 5.7 10^3/uL (1.5-6.6); NEUTROPHILS % (AUTO) 42.6 %; PLT - PLATELET COUNT 438 10^3/uL (130-450); RED BLOOD COUNT 4.73 10^6/uL (4.20-5.40); RED CELL DISTRIBUTION WIDTH 16.2 % (12.0-15.0); WHITE BLOOD COUNT 13.4 x10^3/uL (4.8-10.8)
[2021-09-29 12:58] LABS: RBC MORPHOLOGY (MULTIPLE) 3+ ANISOCYTOSIS (NORMAL); SLIDE REVIEW? Indicated
[2021-09-29 12:59] LABS: WBC MORPHOLOGY (MULTIPLE) 2+ REACTIVE LYMPHS (NORMAL)
== END 2021-09-29 10:01 | disposition home or self-care (01) ==
LOC: LAB.N 10:00
PROVIDERS: ATTEND Physician Assistant Medical
DX: U07.1 COVID-19 (principal)
CPT/HCPCS: 36415; 85025; 86140

== ENCOUNTER 2021-12-23 18:18 | Outpatient (CLI) | payer MEDICARE, OTHER | END 2021-12-23 18:19 | disposition home or self-care (01) | LOC: LAB 18:18 | PROVIDERS: ATTEND Physician Assistant Medical | DX: R05.9 Cough, unspecified (principal); Z20.822 Contact with and (suspected) exposure to COVID-19 ==

== ENCOUNTER 2022-10-13 08:33 | Outpatient (CLI) | payer MEDICARE, OTHER ==
[2022-10-13 12:15] LABS: BASOPHILS # (AUTO) 0.1 10^3/uL (0.0-0.1); BASOPHILS % (AUTO) 1.2 %; EOSINOPHILS # (AUTO) 0.3 10^3/uL (0.0-0.7); EOSINOPHILS % (AUTO) 4.5 %; HCT - HEMATOCRIT 41.1 % (37.0-47.0); LYMPHOCYTES # (AUTO) 2.6 10^3/uL (1.5-3.5); LYMPHOCYTES % (AUTO) 37.8 %; MEAN CORPUSCULAR HEMOGLOBIN 30.4 pg (27.0-31.0); MEAN CORPUSCULAR HGB CONC 31.6 g/dL (32.0-36.0); MEAN CORPUSCULAR VOLUME 96.3 fL (81.0-99.0); MEAN PLATELET VOLUME 9.2 fL (7.9-10.8); MONOCYTES # (AUTO) 0.7 10^3/uL (0.0-1.0); MONOCYTES % (AUTO) 10.5 %; NEUTROPHILS # (AUTO) 3.2 10^3/uL (1.5-6.6); NEUTROPHILS % (AUTO) 45.9 %; PLT - PLATELET COUNT 423 10^3/uL (130-450); RED BLOOD COUNT 4.27 10^6/uL (4.20-5.40); RED CELL DISTRIBUTION WIDTH 14.7 % (12.0-15.0); WHITE BLOOD COUNT 6.9 x10^3/uL (4.8-10.8)
[2022-10-13 12:38] LABS: ALBUMIN 3.3 g/dL (3.2-5.5); ALBUMIN/GLOBULIN RATIO 0.8 (1.0-2.2); ALKALINE PHOSPHATASE 61 IU/L (42-121); ALT ALANINE AMINOTRANSFERASE 21 IU/L (10-60); AST ASPARTATE AMINOTRANSFERASE 23 IU/L (10-42); BILIRUBIN,TOTAL 0.3 mg/dL (0.2-1.0); BUN - BLOOD UREA NITROGEN 12 mg/dL (6-20); CALCIUM 9.7 mg/dL (8.5-10.3); CARBON DIOXIDE - CO2 31 mmol/L (21-32); CHLORIDE 106 mmol/L (101-111); CHOL/HDL RATIO 3.7 (<4.4); CHOLESTEROL 209 mg/dL; CREATININE 0.7 mg/dL (0.4-1.0); GFR - MDRD 79 (>89); GLUCOSE 115 mg/dL (70-100); HDL CHOLESTEROL 57 mg/dL; LDL CHOLESTEROL,CALCULATED 137 mg/dL; LDL/HDL RATIO 2.4 (<4.4); POTASSIUM 4.3 mmol/L (3.5-5.0); SODIUM 143 mmol/L (135-145); TOTAL PROTEIN 7.2 g/dL (6.7-8.2); TRIGLYCERIDES 76 mg/dL; VLDL CHOLESTEROL 15 mg/dL
[2022-10-14 11:40] LABS: ESTIMATED AVERAGE GLUCOSE 126 mg/dL (70-100)
== END 2022-10-13 08:34 | disposition home or self-care (01) ==
LOC: LAB.N 08:33
PROVIDERS: ATTEND Physician Assistant Medical
DX: E78.5 Hyperlipidemia, unspecified (principal); R73.01 Impaired fasting glucose; J30.9 Allergic rhinitis, unspecified
CPT/HCPCS: 36415; 80053; 80061; 83036; 83721; 85025

== ENCOUNTER 2022-11-14 10:24 | Outpatient (CLI) | payer MEDICARE, OTHER ==
--- NOTE | 2022-11-15 12:13 | Mammography Report ---
BILATERAL DIGITAL SCREENING MAMMOGRAM 3D/2D: 11/14/2022 CLINICAL: Routine screening. Comparison is made to exams dated: 09/27/2020 mammogram, 07/18/2019 mammogram, 07/10/2018 mammogram, mammogram, 06/05/2016 mammogram, and 06/03/2015 mammogram - [facility]. Both breasts are almost entirely fatty (category a/<25% glandular tissue). No significant masses, calcifications, or other findings are seen in either breast. There has been no significant interval change. IMPRESSION: NEGATIVE There is no mammographic evidence of malignancy. A 1 year screening mammogram is recommended. This exam was interpreted at Station ID: [id number]. NOTE: For mammograms, a report in lay terms will be sent to the patient. Approximately 15% of breast malignancies will not be visualized mammographically. In the management of a palpable breast mass, a negative mammogram must not discourage biopsy of a clinically suspicious lesion. Electronically Signed By: Yana yarbrough/dom:11/14/2022 15:05:10 letter sent: No_Letter ACR BI-RADS Category 1: Negative 3341F PARENCHYMAL PATTERN: (F) - The breast(s) demonstrate(s) diffuse fatty replacement. BI-RADS CATEGORY: (1) - 1 Mammogram [id number] 1 year screening LATERALITY: (B)
== END 2022-11-14 10:25 | disposition home or self-care (01) ==
LOC: DI.N 10:24
DX: Z12.31 Encounter for screening mammogram for malignant neoplasm of breast (principal)

== ENCOUNTER 2023-04-27 08:13 | Outpatient (CLI) | payer MEDICARE, OTHER ==
[2023-04-27 12:39] LABS: CALCIUM 10.3 mg/dL (8.5-10.3); CREATININE 0.8 mg/dL (0.6-1.3); POTASSIUM 4.5 mmol/L (3.5-4.5)
== END 2023-04-27 08:14 | disposition home or self-care (01) ==
LOC: LAB.N 08:13
PROVIDERS: ATTEND Physician Assistant Medical
DX: R73.01 Impaired fasting glucose (principal)
CPT/HCPCS: 36415; 80048

== ENCOUNTER 2023-12-12 08:08 | Outpatient (CLI) | payer MEDICARE, OTHER ==
[2023-12-12 12:51] LABS: ALBUMIN 3.7 g/dL (3.2-5.5); ALBUMIN/GLOBULIN RATIO 1.1 (1.0-2.2); ALKALINE PHOSPHATASE 59 IU/L (42-121); ALT ALANINE AMINOTRANSFERASE 12 IU/L (10-60); AST ASPARTATE AMINOTRANSFERASE 16 IU/L (10-42); BILIRUBIN,TOTAL 0.6 mg/dL (0.2-1.0); BUN - BLOOD UREA NITROGEN 16 mg/dL (6-20); CALCIUM 10.4 mg/dL (8.5-10.3); CARBON DIOXIDE - CO2 30 mmol/L (21-32); CHLORIDE 105 mmol/L (101-111); CHOL/HDL RATIO 2.8 (<4.4); CHOLESTEROL 200 mg/dL; CREATININE 0.8 mg/dL (0.6-1.3); GFR - MDRD 68 (>89); GLUCOSE 102 mg/dL (74-104); HDL CHOLESTEROL 71 mg/dL; LDL CHOLESTEROL,CALCULATED 112 mg/dL; LDL/HDL RATIO 1.6 (<4.4); POTASSIUM 4.1 mmol/L (3.5-4.5); SODIUM 141 mmol/L (135-145); TOTAL PROTEIN 7.2 g/dL (6.4-8.9); TRIGLYCERIDES 83 mg/dL (48-352); VLDL CHOLESTEROL 17 mg/dL
[2023-12-12 13:02] LABS: ESTIMATED AVERAGE GLUCOSE 120 mg/dL (70-100); HEMOGLOBIN A1c% 5.8 % (4.27-6.07)
== END 2023-12-12 08:09 | disposition home or self-care (01) ==
LOC: LAB.N 08:08
PROVIDERS: ATTEND Physician Assistant Medical
DX: E78.5 Hyperlipidemia, unspecified (principal); R73.01 Impaired fasting glucose
CPT/HCPCS: 36415; 80053; 80061; 83036; 83721

== ENCOUNTER 2024-01-08 10:46 | Outpatient (CLI) | payer MEDICARE, OTHER ==
--- NOTE | 2024-01-09 08:40 | Mammography Report ---
BILATERAL DIGITAL SCREENING MAMMOGRAM 3D/2D: 01/08/2024 CLINICAL: Routine screening. Comparison is made to exams dated: 11/14/2022 mammogram, 09/27/2020 mammogram, 07/18/2019 mammogram, 06/16 mammogram, 06/19/2017 mammogram, and 06/05/2016 mammogram - [facility]. Both breasts are almost entirely fatty (category a/<25% glandular tissue). No significant masses, calcifications, or other findings are seen in either breast. There has been no significant interval change. IMPRESSION: NEGATIVE There is no mammographic evidence of malignancy. A 1 year screening mammogram is recommended. This exam was interpreted at Station ID: [id number]. NOTE: For mammograms, a report in lay terms will be sent to the patient. Approximately 15% of breast malignancies will not be visualized mammographically. In the management of a palpable breast mass, a negative mammogram must not discourage biopsy of a clinically suspicious lesion. Electronically Signed By: Yana yarbrough/dom:01/08/2024 12:21:21 letter sent: No_Letter ACR BI-RADS Category 1: Negative 3341F PARENCHYMAL PATTERN: (F) - The breast(s) demonstrate(s) diffuse fatty replacement. BI-RADS CATEGORY: (1) - 1 RECOMMENDATION: (ANNUAL) - Recommend routine annual screening mammography. [id number] 1 year screening LATERALITY: (B)
== END 2024-01-08 10:47 | disposition home or self-care (01) ==
LOC: DI.N 10:46
DX: Z12.31 Encounter for screening mammogram for malignant neoplasm of breast (principal)